=== PATIENT | male | born 1945 | race African-American/Black ===

== ENCOUNTER 2017-12-05 09:49 | Inpatient (IN) | payer MEDICARE, MEDICAID ==
[2017-12-05 12:15] LABS: Troponin I 0.077 ng/mL (< 0.028)
[2017-12-05] MEDS ORDERED: VANCOMYCIN IVPB PRN (13:13)
[2017-12-05] MEDS ORDERED: Eucerin (Mineral Oil/Petrolatum,White) 30 gm Jar TOP PRN (13:13)
[2017-12-05] MEDS ORDERED: Mag-Al 1200 mg/1200 mg/30 ML UDCUP PO PRN (13:13)
[2017-12-05] MEDS ORDERED: Ondansetron HCl/PF 4 MG/2 ML Vial IVP PRN (13:13)
[2017-12-05] MEDS ORDERED: Zolpidem Tartrate 5 MG TAB PO PRN (13:13)
[2017-12-05] MEDS ORDERED: Artificial Tears 18 DROP/0.9 ML EA EYE PRN (13:13)
[2017-12-05] MEDS ORDERED: Loperamide HCl 2 MG CAP PO PRN (13:13)
[2017-12-05] MEDS ORDERED: Loratadine 10 MG TAB PO PRN (13:13)
[2017-12-05] MEDS ORDERED: Ondansetron ODT 4 MG TAB PO PRN (13:13)
[2017-12-05] MEDS ORDERED: Milk Of Magnesia 30 ML UDCUP PO PRN (13:13)
[2017-12-05] MEDS ORDERED: Sodium Chloride 0.65% Nasal 44 ML BOT EA NARE PRN (13:13)
[2017-12-05] MEDS ORDERED: Acetaminophen 325 MG TAB PO PRN (13:13)
[2017-12-05] MEDS ORDERED: Chloraseptic Spray 180 ml Bottle PO PRN (13:13)
[2017-12-05] MEDS ORDERED: Senokot 8.6 MG TAB PO PRN (13:13)
[2017-12-05] MEDS ORDERED: Diabetic Tussin 200 MG/10 ML UDCUP PO PRN (13:13)
[2017-12-05] MEDS ORDERED: Nitroglycerin 0.4 MG TAB (25 Tab Bottle) SL PRN (13:13)
[2017-12-05] MEDS ORDERED: hydrALAZINE 20 MG/ML VIAL SLOW IVP PRN (13:13)
[2017-12-05] MEDS ORDERED: Vancomycin HCl 1 GM in Premix Bag 1 BAG IVPB SCH (13:15)
[2017-12-05 14:57] LABS: Troponin I 0.171 ng/mL (< 0.028)
--- NOTE | 2017-12-05 15:25 | HP ---
PRIMARY CARE PHYSICIAN: Dr. Cali Olson. REASON FOR ADMISSION: Transfer from [facility] for acute respiratory failure and pneum onia. HISTORY OF PRESENT ILLNESS: A 72-year-old -[place] male, [facility] a complaint of increasing shortness of breath. Patient is a very poor historian. A t [facility], patient was in respiratory distress. He required BiPAP. He was hypoxic. He had a chest x-ray done, which showed entire right lung pneumonia. He was given DuoNeb therapy, Solu-Medrol, and levofloxacin. The patient's routine blood test also showed elevated leukocytosis, e levated troponin, and elevated BNP. The patient was transferred to our emergency room for further ev aluation and treatment. With this treatment so far at [facility], the patient's condit ion somewhat improved and in our emergency room, he was maintaining saturation on 2 liter. He was co mplaining of epigastric abdominal discomfort and he was hungry and he was asking for food. The patie nt was uncooperative with the history and not able to provide any detailed history. The patient appe ared very weak. He is afebrile. The patient denies any chest pain. He denies any palpitation, dizziness, syncope. He denies any ort hopnea, PND, or leg swelling. He was completely comfortable in the lying down position. ALLERGIES: PENICILLIN G. CURRENT HOME MEDICATIONS: Unfortunately, patient did not bring any medication and the patient has no clue what medication he is taking and no family member available at bedside, so unable to obtain the patient's home medication, we will review later. REVIEW OF SYSTEMS: I tried to review the all review of systems with the patient, but he mostly repor ts no to most of the questions except shortness of breath, hunger, pain and epigastric abdominal disc omfort, and cough. Other than that, all review of system reviewed and negative except as mentioned i n the HPI. The following complete review of systems was negative, unless otherwise mentioned in the HPI or below : Constitutional: Weight loss or gain, ability to conduct usual activities. Skin: Rash, itching. Eyes: Double vision, pain. ENT/Mouth: Nose bleeding, neck stiffness, pain, tenderness. Cardiovascular: Palpitations, dyspnea on exertion, orthopnea. Respiratory: Shortness of breath, whee zing, cough, hemoptysis, fever or night sweats. Gastrointestinal: Poor appetite, abdominal pain, hea rtburn, nausea, vomiting, constipation, or diarrhea. Genitourinary: Urgency, frequency, dysuria, noc turia. Musculoskeletal: Pain, swelling. Neurologic/Psychiatric: Anxiety, depression. Allergy/Immun ologic: Skin rash, bleeding tendency. PAST MEDICAL HISTORY: History of myocardial infarction and coronary artery disease, required stent p lacement. Other history not available at this point. PAST SURGICAL HISTORY: Cardiac catheterization and stent placement. PAST PSYCHIATRIC HISTORY: Reviewed and negative. SOCIAL HISTORY: Patient lives with his brother. He denies any tobacco, alcohol, or illicit drug abu se. FAMILY HISTORY: No strong family history of premature coronary artery disease, stroke, or cancer. EMERGENCY ROOM COURSE: Patient was given DuoNeb therapy x3, Solu-Medrol 125 mg and nitropatch as wel l as levofloxacin at other emergency room at [place]. He is receiving vancomycin in our emergency room. He was given 250 mL fluid and morphine 4 mg. PHYSICAL EXAMINATION: VITAL SIGNS: In our emergency room, blood pressure 126/82, pulse 78, respiratory rate 26, temperatur e 97.4, saturation 100% on 2 liter oxygen, weight 77.1 kilograms, but this patient was hypoxic when h e arrived to [facility] and required BiPAP. GENERAL: The patient is chronically ill, tachypneic, and mild nares. HEENT: Head: Normocephalic, atraumatic. Eyes: Pupils round, reactive to light. Extraocular muscl e intact. ENT: Oropharynx within normal limits. Moist mucous membranes. No oral lesion, no pharyn geal erythema, no exudate. NECK: Supple, no JVD, no thyromegaly, no carotid bruit. LUNGS: Air entry reduced on both sides, more scattered rales noted on the right side. No wheezing, no rhonchi, no accessory muscles of respiration in use. CARDIAC: S1 and S2 appears regular. No murmur, no gallop, no rub. ABDOMEN: Soft, bowel sounds present, nontender, nondistended. No organomegaly, no mass, no suprapub ic tenderness. BACK: Unremarkable, no CVA tenderness. EXTREMITIES: Upper extremity passive movement of all joints are normal. Lower extremities: No nicolle a, no calf tenderness. Good distal pulsation. SKIN: No skin rash. HEMATOLOGICAL: No lymphadenopathy. PSYCHIATRIC: Normal affect. NEUROLOGIC: The patient is moving all 4 limbs. Patient's speech is normal. Cranial nerves II-XII i ntact. Motor and sensation grossly normal without any focal neurological deficit. Reflex is symmetr ical. SIGNIFICANT LABORATORY DATA: 1. Blood tests done at [facility] reviewed by me and entire hospital course reviewed b y . 2. BMP shows sodium 138, potassium 4.1, chloride 103, carbon dioxide 22, anion gap 17, glucose 117, BUN 14.1, creatinine 1.1, and calcium 9.7. 3. Bilirubin 1.88, alkaline phosphatase 71, AST 25, ALT 21, protein 9.5, albumin 4.2. Lactic acid 3 .2 and here 4.7. 4. CK 248, CK-MB 4.7, troponin I 0.051. BNP 2363. 5. CBC: WBC 12.6, hemoglobin 14.8, platelet 231. Blood culture x2 done at [facility] . IMAGING DATA: Chest x-ray showing a right-sided bronchopneumonia. EKG showing normal sinus rhythm, left atrial enlargement, low voltage QRS complex. ASSESSMENT AND PLAN: 1. Acute hypoxic respiratory failure likely due to underlying pneumonia on the right lung. The diana ent required initially BiPAP as well as now he still requires oxygen, most likely related with pneumo abdoulaye and we will gradually wean off oxygen and assess daily for need of home oxygen. 2. Right-sided pneumonia. Patient's chest x-ray is most likely consistent with pneumonia. He has l actic acidosis as well as associated hypoxic respiratory failure. Pulmonary will be consulted. Diana ent will be admitted on IMCU for close monitoring. He will be given cefepime, Levaquin, and vancomyc in to cover all possible gram-negative rods as well as gram positive cocci. DuoNeb therapy q.6 hourl y, Mucinex 600 mg 3 times daily. We will follow up on culture result. We will closely monitor in IM CU. 3. Sepsis with acute organ dysfunction. This patient has leukocytosis, lactic acidosis, acute hypox ic respiratory failure, and source of infection is pneumonia. We will also check urinalysis to rule out urinary tract infection. The patient is already on broad spectrum antibiotic therapy with cefepi me, Levaquin, and vancomycin. 4. Lactic acidosis, likely due to underlying sepsis and we will repeat lactic acid level tomorrow. 5. Protein calorie malnutrition, mild. The patient will be given nutritional supplementation with E nsure. 6. History of coronary artery disease. We will continue aspirin 81 mg p.o. daily and do serial card iac enzymes x3 to rule out acute coronary syndrome and we will obtain patient's home medication and s elected home medication will be started while in hospital. 7. Elevated BNP, suspecting cardiomyopathy, systolic or diastolic unknown, but at this point, the pa taya will need echocardiography and the patient is currently appears euvolemic. He does not have an y rales and that is why we will gently give him IV fluid as well, and we will closely monitor in IMCU . We will watch for any signs of fluid overload state. 8. Deep venous thrombosis prophylaxis. Lovenox 40 mg subcu daily. 9. Gastrointestinal prophylaxis. Pepcid 20 mg p.o. b.i.d. 10. Code status: The patient is FULL CODE. Patient does not have any surrogate decision maker. Di sposition plan based on clinical course. We are expecting patient's stay in hospital more than 2 mid nights. Plan of care discussed with the patient in detail.
[2017-12-05] MEDS: guaiFENesin ER 600 MG TAB PO SCH ×2 (16:09→21:00)
[2017-12-05 17:03] LABS: Lactic Acid 4.3 mmol/L (0.5-2.2)
[2017-12-05 17:20] LABS: ALT (SGPT) 16 U/L (8-55); AST (SGOT) 20 U/L (5-34); Albumin 3.7 g/dL (3.4-4.8); Alkaline Phosphatase 61 U/L (40-150); Anion Gap 16 mmol/L (10-20); BUN (Urea Nitrogen) 15 mg/dL (8.4-25.7); Bilirubin, Total 1.5 mg/dL (0.2-1.2); Calc. Creatinine Clearance 0 mL/min (70-130); Calcium 9.3 mg/dL (7.8-10.44); Carbon Dioxide 23 mmol/L (23-31); Chloride 101 mmol/L (98-107); Estimated GFR-MDRD 82; Globulin 4.6 g/dL (2.4-3.5); Glucose 201 mg/dL (83-110); Potassium 4.1 mmol/L (3.5-5.1); Protein, Total 8.3 g/dL (5.8-8.1); Sodium 136 mmol/L (136-145)
[2017-12-05 18:35] LABS: Bilirubin Negative (Negative); Blood, Urine Negative (Negative); Clarity CLEAR (Clear); Glucose, Urine (Dipstick) 250 mg/dL (Negative); Leukocyte Negative (Negative); Nitrite Negative (Negative); Protein, Urine (Dipstick) Negative (Neg-Trace); Specific Gravity, Urine 1.017 (1.002-1.036)
[2017-12-05 18:37] LABS: Bacteria/HPF None Seen HPF (None Seen); Hyaline Casts/LPF 0-3 HYALINE CAST LPF (0-3 Hyaline); RBC/HPF None Seen HPF (0-3); Squamous Epithelial None Seen HPF (0-3); WBC/HPF 0-3 HPF (0-3)
[2017-12-05] MEDS ORDERED: Cefepime 2 GM in Sodium Chloride 0.9% 100 ML IVPB SCH (21:00)
[2017-12-05] MEDS: Cefepime 2 GM, Syringe 2.5 ML in Sodium Chloride 0.9% 10 ML SLOW IVP SCH (21:00)
[2017-12-05] MEDS: Famotidine 20 MG TAB PO SCH (21:00)
[2017-12-06] MEDS: Vancomycin HCl 1 GM in Premix Bag 1 BAG IVPB SCH ×2 (00:47→14:16)
[2017-12-06 05:58] LABS: #Lymphocytes 1.4 thou/uL (1.20-3.40); #Monocytes 0.8 thou/uL (0.11-0.59); #Neutrophils 8.3 thou/uL (1.40-6.50); %Basophils 0.2 % (0.0-1.0); %Eosinophils 0.3 % (0.0-10.0); %Lymphocytes 12.9 % (21.0-51.0); %Monocytes 7.7 % (0.0-10.0); %Neutrophils 78.8 % (42.0-75.0); Hemoglobin 11.4 g/dL (14.0-18.0); Mean Corpuscular HGB CONC 33.8 g/dL (32.0-36.0); Mean Corpuscular Hemoglobin 28.6 pg (27.0-31.0); Mean Corpuscular Volume 84.5 fl (80.0-94.0); Mean Platelet Volume 7.7 fL (7.4-10.4); Platelet Count 201 thou/uL (130-400); RBC Distribution Width 14.7 % (11.5-14.5); White Blood Cell (WBC) Count 10.5 thou/uL (4.8-10.8)
[2017-12-06 06:08] LABS: Lactic Acid 1.7 mmol/L (0.5-2.2)
[2017-12-06 06:11] LABS: ALT (SGPT) 13 U/L (8-55); AST (SGOT) 17 U/L (5-34); Albumin 3.2 g/dL (3.4-4.8); Alkaline Phosphatase 53 U/L (40-150); Anion Gap 9 mmol/L (10-20); BUN (Urea Nitrogen) 21 mg/dL (8.4-25.7); Bilirubin, Total 0.8 mg/dL (0.2-1.2); Calc. Creatinine Clearance 58 mL/min (70-130); Calcium 8.9 mg/dL (7.8-10.44); Carbon Dioxide 26 mmol/L (23-31); Chloride 106 mmol/L (98-107); Estimated GFR-MDRD 79; Globulin 3.7 g/dL (2.4-3.5); Glucose 108 mg/dL (83-110); Potassium 3.4 mmol/L (3.5-5.1); Protein, Total 6.9 g/dL (5.8-8.1); Sodium 138 mmol/L (136-145)
[2017-12-06 06:14] LABS: CKMB 2.9 ng/mL (0-6.6); Troponin I 0.159 ng/mL (< 0.028)
[2017-12-06] MEDS ORDERED: Non-Formulary Item 1 EACH (Atorvastatin Calcium [Atorvastatin Calcium] 80 MG) PO SCH (09:00)
[2017-12-06] MEDS ORDERED: Aspirin 325 MG TAB PO SCH (09:00)
--- NOTE | 2017-12-06 09:04 | RAD ---
CHEST ONE VIEW: HISTORY: Pneumonia. COMPARISON: None. FINDINGS: There is cardiomegaly. There are patchy interstitial opacities throughout the lung parenchyma. A fo kary alveolar infiltrate in the right lung base is suggested. There is an adjacent pleural effusion. No pneumothorax. IMPRESSION: 1. Multifocal interstitial opacities, which may represent infiltrate. 2. Focal alveolar infiltrate in the right lung base. 3. Adjacent pleural effusion. 4. A component of congestive heart failure cannot be excluded. Continued surveillance. POS: WHITNEY
[2017-12-06] MEDS: Lisinopril 2.5 MG TAB PO SCH (09:07)
[2017-12-06] MEDS: Multivitamin W/ Minerals 1 TAB PO SCH (09:09)
[2017-12-06] MEDS: Furosemide 20 MG TAB PO SCH ×2 (09:09→14:03)
[2017-12-06] MEDS: Carvedilol 3.125 MG TAB PO SCH ×2 (09:09→20:47)
[2017-12-06] MEDS: Saccharomyces boulardii 250 MG CAP PO SCH (09:09)
[2017-12-06] MEDS: Clopidogrel Bisulfate 75 MG TAB PO SCH (09:09)
[2017-12-06] MEDS: Enoxaparin Sodium 30 MG/0.3 ML SYRINGE SC SCH (09:11)
[2017-12-06] MEDS: guaiFENesin ER 600 MG TAB PO SCH ×3 (09:17→20:47)
--- NOTE | 2017-12-06 10:28 | PDOC.PN ---
- Subjective Encounter Start Date: 12/06/17 Encounter Start Time: 07:40 -: old records requested/rev Patient seen and examined. No new complaints. No overnight events has cough, dyspnea - Objective Resuscitation Status: Resuscitation Status FULL:Full Resuscitation MAR Reviewed: Yes Vital Signs & Weight: Vital Signs (12 hours) Temp Pulse Resp BP BP BP Pulse Ox 12/06/17 09:07 73 117/64 12/06/17 09:05 100 12/06/17 09:02 73 16 100 12/06/17 07:46 98.3 F 65 18 117/64 99 12/06/17 04:00 98.4 F 69 16 122/71 94 L 12/05/17 23:17 84 16 96 Weight Weight 150 lb 6.4 oz I&O: 12/05/17 12/06/17 12/07/17 06:59 06:59 06:59 Intake Total 880 Output Total 1275 Balance -395 Result Diagrams: 12/06/17 04:43 12/06/17 04:43 Radiology Reviewed by me: Yes (chest xray) EKG Reviewed by me: Yes Phys Exam - Physical Examination Constitutional: NAD HEENT: PERRLA, moist MMs, sclera anicteric Neck: no JVD, supple Respiratory: no wheezing, no rhonchi right base reduced air entry and rales Cardiovascular: RRR, no significant murmur, no rub Gastrointestinal: soft, non-tender, no distention, positive bowel sounds Musculoskeletal: no edema, pulses present Neurological: non-focal, normal sensation, moves all 4 limbs Psychiatric: normal affect Skin: no rash, normal turgor Dx/Plan (1) Acute respiratory failure with hypoxia Code(s): J96.01 - ACUTE RESPIRATORY FAILURE WITH HYPOXIA Status: Acute (2) Community acquired bacterial pneumonia Code(s): J15.9 - UNSPECIFIED BACTERIAL PNEUMONIA Status: Acute (3) Demand ischemia of myocardium Code(s): I24.8 - OTHER FORMS OF ACUTE ISCHEMIC HEART DISEASE Status: Acute (4) Elevated brain natriuretic peptide (BNP) level Code(s): R79.89 - OTHER SPECIFIED ABNORMAL FINDINGS OF BLOOD CHEMISTRY Status : Acute (5) Hypokalemia Code(s): E87.6 - HYPOKALEMIA Status: Acute (6) Lactic acidosis Code(s): E87.2 - ACIDOSIS Status: Acute (7) Sepsis with acute organ dysfunction Code(s): A41.9 - SEPSIS, UNSPECIFIED ORGANISM; R65.20 - SEVERE SEPSIS WITHOUT SEPTIC SHOCK Status: Acute (8) Anemia, normocytic normochromic Code(s): D64.9 - ANEMIA, UNSPECIFIED Status: Chronic (9) CAD (coronary artery disease) Code(s): I25.10 - ATHSCL HEART DISEASE OF [place] CORONARY ARTERY W/O ANG PCTRS Status: Chronic (10) Dyslipidemia Code(s): E78.5 - HYPERLIPIDEMIA, UNSPECIFIED Status: Chronic (11) Protein-calorie malnutrition, mild Code(s): E44.1 - MILD PROTEIN-CALORIE MALNUTRITION Status: Chronic - Plan cont current plan of care, continue antibiotics, PT/OT, nephrology social worker, respiratory therapy, DVT proph w/lovenox * continue cefepime, levaquin and vancomycin * continue respiratory therapy * echo * follow culture * medication reviewed as below * symptomatic treatment. * replace potassium Review of Systems - Review of Systems Constitutional: negative: fever, chills, sweats, weakness, malaise, other Eyes: negative: Pain, Vision Change, Conjunctivae Inflammation, Eyelid Inflammation, Redness, Other ENT: negative: Ear Pain, Ear Discharge, Nose Pain, Nose Discharge, Nose Congestion, Mouth Pain, Mouth Swelling, Throat Pain, Throat Swelling, Other Respiratory: Cough, Shortness of Breath. negative: Dry, Hemoptysis, SOB with Excertion, Pleuritic Pain, Sputum, Wheezing Cardiovascular: negative: chest pain, palpitations, orthopnea, paroxysmal nocturnal dyspnea, edema, light headedness, other Gastrointestinal: negative: Nausea, Vomiting, Abdominal Pain, Diarrhea, Constipation, Melena, Hematochezia, Other Genitourinary: negative: Dysuria, Frequency, Incontinence, Hematuria, Retention , Other Musculoskeletal: negative: Neck Pain, Shoulder Pain, Arm Pain, Back Pain, Hand Pain, Leg Pain, Foot Pain, Other Skin: negative: Rash, Lesions, Luiz, Bruising, Other - Medications/Allergies Allergies/Adverse Reactions: Allergies Allergy/AdvReac Type Severity Reaction Status Date / Time penicillin G Allergy Verified 12/05/17 13:02 Medications: Current Medications Acetaminophen (Tylenol) 650 mg PO Q4H PRN PRN Reason: Headache/Fever or Pain Hydrocodone Bitart/Acetaminophen ([place] 5/325) 1 tab PO Q4H PRN PRN Reason: Moderate Pain (4-6) Al Hydroxide/Mg Hydroxide (Maalox) 30 ml PO Q6H PRN PRN Reason: Heartburn or Indigestion Albuterol/Ipratropium (Duoneb) 3 ml NEB [id number] [facility] Last Admin: 12/06/17 09:02 Dose: 3 ml Artificial Tears (Tears Naturale) 0 drop EA EYE PRN PRN PRN Reason: Dry Eyes Aspirin (Aspirin Chewable) 81 mg PO DAILY [facility] Last Admin: 12/06/17 09:08 Dose: 81 mg Atorvastatin Calcium (Lipitor) 80 mg PO HS [facility] Carvedilol (Coreg) 3.125 mg PO BID [facility] Last Admin: 12/06/17 09:09 Dose: 3.125 mg Clopidogrel Bisulfate (Plavix) 75 mg PO DAILY [facility] Last Admin: 12/06/17 09:09 Dose: 75 mg Enoxaparin Sodium (Lovenox) 30 mg SC 0900 [facility] Last Admin: 12/06/17 09:11 Dose: Not Given Famotidine (Pepcid) 20 mg PO 2100 [facility] Last Admin: 12/05/17 21:00 Dose: 20 mg Furosemide (Lasix) 20 mg PO 0900,1400 [facility] Last Admin: 12/06/17 09:09 Dose: 20 mg Guaifenesin (Robitussin Sf) 200 mg PO Q4H PRN PRN Reason: Cough Guaifenesin (Mucinex) 600 mg PO TID [facility] Last Admin: 12/06/17 09:17 Dose: Not Given Hydralazine HCl (Apresoline) 10 mg SLOW IVP Q4H PRN PRN Reason: Systolic BP > 180 Levofloxacin 500 mg/ Device 100 mls @ 100 mls/hr IVPB 1800 [facility] Last Admin: 12/05/17 18:07 Dose: 100 mls Cefepime HCl 2 gm/ Syringe 2.5 (ml/ Sodium Chloride) 12.5 mls @ 150 mls/hr SLOW IVP 0800,2000 [facility] Last Admin: 12/05/17 21:00 Dose: 12.5 mls Vancomycin HCl 1 gm/ Device 200 mls @ 200 mls/hr IVPB 0100,1300 [facility] Last Admin: 12/06/17 00:47 Dose: 200 mls Iron/Minerals/Multivitamins (Theragran M) 1 tab PO DAILY [facility] Last Admin: 12/06/17 09:09 Dose: 1 tab Lisinopril (Zestril) 2.5 mg PO DAILY [facility] Last Admin: 12/06/17 09:07 Dose: 2.5 mg Loperamide HCl (Imodium) 2 mg PO PRN PRN PRN Reason: Diarrhea/Loose Stools Loratadine (Claritin) 10 mg PO DAILYPRN PRN PRN Reason: Sinus Symptoms Magnesium Hydroxide (Milk Of Magnesium) 30 ml PO DAILYPRN PRN PRN Reason: Constipation Mineral Oil/White Petrolatum (Eucerin Cream) 0 gm TOP BIDPRN PRN PRN Reason: Dry Skin Miscellaneous Medication (Pharmacy To Dose) 1 each IVPB PRN PRN PRN Reason: Pharmacy to dose Nitroglycerin (Nitrostat) 0.4 mg SL Q5MIN PRN PRN Reason: Chest Pain Ondansetron HCl (Zofran Odt) 4 mg PO Q6H PRN PRN Reason: Nausea/Vomiting Ondansetron HCl (Zofran) 4 mg IVP Q6H PRN PRN Reason: Nausea/Vomiting Phenol (Chloraseptic Isabella 180 Ml Bot) 0 ml PO PRN PRN PRN Reason: Sore Throat Saccharomyces Boulardii (Florastor) 250 mg PO DAILY [facility] Last Admin: 12/06/17 09:09 Dose: 250 mg Senna (Senokot) 2 tab PO HSPRN PRN PRN Reason: Constipation Sodium Chloride (Marquand Nasal Isabella 0.65%) 0 ml EA NARE QIDPRN PRN PRN Reason: Nasal Congestion Sodium Chloride (Flush - Normal Saline) 10 ml IVF Q12HR [facility] Last Admin: 12/06/17 09:16 Dose: 10 ml Sodium Chloride (Flush - Normal Saline) 10 ml IVF PRN PRN PRN Reason: Saline Flush Zolpidem Tartrate (Ambien) 5 mg PO HSPRN PRN PRN Reason: Insomnia
[2017-12-06] MEDS: Cefepime 2 GM, Syringe 2.5 ML in Sodium Chloride 0.9% 10 ML SLOW IVP SCH ×2 (10:42→20:46)
[2017-12-06] MEDS: Potassium Chloride 20 MEQ TAB PO SCH ×3 (14:02→18:31)
[2017-12-06] MEDS: HYDROcodone/Acetaminophen 5/325 mg Tablet PO PRN (15:27)
--- NOTE | 2017-12-06 19:20 | CON ---
DATE OF CONSULTATION: 12/06/2017 SERVICE: Pulmonary Medicine. REASON FOR CONSULTATION: Possible pneumonia. HISTORY OF PRESENT ILLNESS: Patient is a 72-year-old -[place] male with past medical history, which is essentially unknown. He is a little cantankerous. He is also a poor historian. He does not remember how long he was short of breath or whether or not he was coughing before he came into the hospital. He does not remember having any chest discomfort. That being said, he is not willingly giving away any elements of his presentation. He keeps suggesting that I should know exactly what the problem is, in that all I want is his money. He suggests that I should know exactly what medications make him better because this has happened so frequently. I attempted to explain to him that this is the first time for us to meet him with our system. He did not want to hear my explanation and request that I leave. As such, I acquiesced with his request. Prior to going, he did allow me to listen to his heart, lungs , abdomen, and look at his legs. Past medical history, past surgical history, family history, social history, and review of systems could not be obtained as the patient was not a willing participant. ALLERGIES: Based on chart review include PENICILLIN G. MEDICATIONS: The list of his inpatient medications were reviewed. I have discontinued the IV fluids, but otherwise, no significant changes were made. PHYSICAL EXAMINATION: VITAL SIGNS: Afebrile, pulse 67, blood pressure 127/73, respirations 98% on 2 liters nasal cannula. GENERAL: The patient is awake and alert. He is in no apparent distress. HEENT: Normocephalic, atraumatic. Sclerae are white, conjunctivae pink. Oral mucosa is moist without lesions. LUNGS: Decent air entry. I do not hear much of a prolonged expiratory phase. No wheezing is appreciated. Crackles are present in the right base. No crackles are appreciated on the left. HEART: Normal rate. Regular. ABDOMEN: Soft, nontender, nondistended. Bowel sounds are positive. MUSCULOSKELETAL: No cyanosis or clubbing. There is trace edema in the bilateral lower extremities. NEUROLOGIC: Grossly nonfocal. LABORATORY DATA: WBC 10.5, hemoglobin 11.4, platelets 201,000. Basic metabolic profile and liver function studies are otherwise unremarkable. Troponin is down trending to 0.159. Lactate on presentation was elevated at 4.7 , but has returned to normal at 1.7. Urinalysis is also unremarkable. Influenza A and B are negative. IMAGIN. Chest x-ray demonstrates right basilar infiltrate. Interstitial opacities are present throughout bilateral lung manzano. Right-sided pleural effusion is likely small. 2. Echocardiogram demonstrates an EF of 20-25% with a very thin anterior wall that is not denzel. ASSESSMENT: 1. Acute hypoxic respiratory failure, mild. 2. Healthcare-associated pneumonia, unlikely. 3. Chronic systolic heart failure, unknown baseline. PLAN: I will request records from his home system so that we have a better fundamental understanding of his underlying medical condition. If he does not have a formal diagnosis of a condition causing cognitive impairment, this may need to be investigated in the outpatient setting. We will continue empiric antibiotics for the time being, but truth be told, I do think that he has a true infection. I did watch him eat a couple of bites of lunch and he had to clear his throat a little excessively after two of the several bites that I witnessed. As such, I have Speech Pathology come by and look at him to determine whether or not a modified barium swallow would be indicated. If cultures are negative at 48 hours, we can deescalate antibiotics and discharge the patient. 70 minutes have been devoted to this patient in various activities. I personally reviewed all imaging studies and laboratory data noted within this document. For fifty percent of this time, I was interacting with the patient at the bedside or coordinating care with the care team. For the remainder of the time I was immediately available to the patient in the hospital unit. NATTY
[2017-12-06] MEDS: Famotidine 20 MG TAB PO SCH (20:47)
[2017-12-06] MEDS: Atorvastatin Calcium 40 MG TAB PO SCH (20:47)
[2017-12-07 01:18] LABS: Vancomycin, Trough 12.7 ug/mL
[2017-12-07] MEDS: Vancomycin HCl 1 GM in Premix Bag 1 BAG IVPB SCH ×2 (01:32→14:10)
[2017-12-07 05:18] LABS: #Eosinphils 0.3 thou/uL (0.0-0.7); #Lymphocytes 1.6 thou/uL (1.20-3.40); #Monocytes 0.5 thou/uL (0.11-0.59); #Neutrophils 6.1 thou/uL (1.40-6.50); %Basophils 0.3 % (0.0-1.0); %Eosinophils 3.2 % (0.0-10.0); %Lymphocytes 18.6 % (21.0-51.0); %Monocytes 6.2 % (0.0-10.0); %Neutrophils 71.8 % (42.0-75.0); Hemoglobin 11.8 g/dL (14.0-18.0); Mean Corpuscular HGB CONC 32.9 g/dL (32.0-36.0); Mean Corpuscular Hemoglobin 27.9 pg (27.0-31.0); Mean Corpuscular Volume 84.8 fl (80.0-94.0); Mean Platelet Volume 7.5 fL (7.4-10.4); Platelet Count 200 thou/uL (130-400); RBC Distribution Width 14.7 % (11.5-14.5); Red Blood Cell (RBC) Count 4.24 mill/uL (4.70-6.10); White Blood Cell (WBC) Count 8.5 thou/uL (4.8-10.8)
[2017-12-07 05:33] LABS: Anion Gap 10 mmol/L (10-20); BUN (Urea Nitrogen) 25 mg/dL (8.4-25.7); Calc. Creatinine Clearance 58 mL/min (70-130); Calcium 8.8 mg/dL (7.8-10.44); Carbon Dioxide 27 mmol/L (23-31); Cardiac Risk 2.6 (Less than 4.5); Chloride 104 mmol/L (98-107); Cholesterol 110 mg/dl (< 200 Desired); Estimated GFR-MDRD 78; Glucose 90 mg/dL (83-110); HDL Cholesterol 42 mg/dL (>60 Neg Risk); LDL Cholesterol, Calculated 61 mg/dL; Potassium 4.1 mmol/L (3.5-5.1); Sodium 137 mmol/L (136-145); Triglycerides 35 mg/dL (Less than 150)
[2017-12-07] MEDS: guaiFENesin ER 600 MG TAB PO SCH ×3 (09:06→20:10)
[2017-12-07] MEDS: Enoxaparin Sodium 30 MG/0.3 ML SYRINGE SC SCH (09:06)
--- NOTE | 2017-12-07 09:07 | PDOC.PN ---
- Subjective Encounter Start Date: 12/07/17 Encounter Start Time: 07:20 Patient seen and examined. No new complaints. No overnight events today he is doing well, saturating normal - Objective Resuscitation Status: Resuscitation Status FULL:Full Resuscitation MAR Reviewed: Yes Vital Signs & Weight: Vital Signs (12 hours) Temp Pulse Resp BP Pulse Ox 12/07/17 06:45 99 12/07/17 06:43 80 99 12/07/17 04:00 98.9 F 77 18 128/89 98 12/07/17 01:56 98 12/06/17 23:53 98.2 F 74 18 117/80 98 Weight Admit Weight 154 lb 4 oz Weight 154 lb 6.4 oz I&O: 12/06/17 12/07/17 12/08/17 06:59 06:59 07:59 Intake Total 880 2340 Output Total 1275 1885 Balance -395 455 Result Diagrams: 12/07/17 04:22 12/07/17 04:22 EKG Reviewed by me: Yes (nsr) Phys Exam - Physical Examination Constitutional: NAD HEENT: PERRLA, moist MMs, sclera anicteric Neck: no JVD, supple Respiratory: no wheezing, no rales, no rhonchi Cardiovascular: RRR, no significant murmur, no rub Gastrointestinal: soft, non-tender, no distention, positive bowel sounds Musculoskeletal: no edema, pulses present Neurological: non-focal, normal sensation, moves all 4 limbs Psychiatric: normal affect, A&O x 3 Skin: no rash, normal turgor Dx/Plan (1) Acute respiratory failure with hypoxia Code(s): J96.01 - ACUTE RESPIRATORY FAILURE WITH HYPOXIA Status: Resolved (2) Community acquired bacterial pneumonia Code(s): J15.9 - UNSPECIFIED BACTERIAL PNEUMONIA Status: Acute (3) Demand ischemia of myocardium Code(s): I24.8 - OTHER FORMS OF ACUTE ISCHEMIC HEART DISEASE Status: Acute (4) Elevated brain natriuretic peptide (BNP) level Code(s): R79.89 - OTHER SPECIFIED ABNORMAL FINDINGS OF BLOOD CHEMISTRY Status : Acute Comment: due to systolic CHF (5) Hypokalemia Code(s): E87.6 - HYPOKALEMIA Status: Resolved (6) Lactic acidosis Code(s): E87.2 - ACIDOSIS Status: Resolved (7) Sepsis with acute organ dysfunction Code(s): A41.9 - SEPSIS, UNSPECIFIED ORGANISM; R65.20 - SEVERE SEPSIS WITHOUT SEPTIC SHOCK Status: Acute (8) Anemia, normocytic normochromic Code(s): D64.9 - ANEMIA, UNSPECIFIED Status: Chronic (9) CAD (coronary artery disease) Code(s): I25.10 - ATHSCL HEART DISEASE OF [place] CORONARY ARTERY W/O ANG PCTRS Status: Chronic (10) Dyslipidemia Code(s): E78.5 - HYPERLIPIDEMIA, UNSPECIFIED Status: Chronic (11) Protein-calorie malnutrition, mild Code(s): E44.1 - MILD PROTEIN-CALORIE MALNUTRITION Status: Chronic (12) Acute on chronic systolic (congestive) heart failure Code(s): I50.23 - ACUTE ON CHRONIC SYSTOLIC (CONGESTIVE) HEART FAILURE Status : Acute - Plan cont current plan of care, continue antibiotics, respiratory therapy * continue cefepime, levaquin and vancomycin * today later on based on culture, will narrow antibiotic spectrum * unsure if pt had cardiomyopathy before or not, will need cardiology evaluation * medication reviewed as below * symptomatic treatment. Review of Systems - Review of Systems Constitutional: negative: fever, chills, sweats, weakness, malaise, other Eyes: negative: Pain, Vision Change, Conjunctivae Inflammation, Eyelid Inflammation, Redness, Other ENT: negative: Ear Pain, Ear Discharge, Nose Pain, Nose Discharge, Nose Congestion, Mouth Pain, Mouth Swelling, Throat Pain, Throat Swelling, Other Respiratory: negative: Cough, Dry, Shortness of Breath, Hemoptysis, SOB with Excertion, Pleuritic Pain, Sputum, Wheezing Cardiovascular: negative: chest pain, palpitations, orthopnea, paroxysmal nocturnal dyspnea, edema, light headedness, other Gastrointestinal: negative: Nausea, Vomiting, Abdominal Pain, Diarrhea, Constipation, Melena, Hematochezia, Other Genitourinary: negative: Dysuria, Frequency, Incontinence, Hematuria, Retention , Other Musculoskeletal: negative: Neck Pain, Shoulder Pain, Arm Pain, Back Pain, Hand Pain, Leg Pain, Foot Pain, Other Skin: negative: Rash, Lesions, Luiz, Bruising, Other Neurological: negative: Weakness, Numbness, Incoordination, Change in Speech, Confusion, Seizures, Other - Medications/Allergies Allergies/Adverse Reactions: Allergies Allergy/AdvReac Type Severity Reaction Status Date / Time penicillin G Allergy Verified 12/05/17 13:02 Medications: Current Medications Acetaminophen (Tylenol) 650 mg PO Q4H PRN PRN Reason: Headache/Fever or Pain Hydrocodone Bitart/Acetaminophen ([place] 5/325) 1 tab PO Q4H PRN PRN Reason: Moderate Pain (4-6) Last Admin: 12/06/17 15:27 Dose: 1 tab Al Hydroxide/Mg Hydroxide (Maalox) 30 ml PO Q6H PRN PRN Reason: Heartburn or Indigestion Albuterol/Ipratropium (Duoneb) 3 ml NEB [id number] [facility] Last Admin: 12/07/17 06:43 Dose: 3 ml Artificial Tears (Tears Naturale) 0 drop EA EYE PRN PRN PRN Reason: Dry Eyes Aspirin (Aspirin Chewable) 81 mg PO DAILY [facility] Last Admin: 12/06/17 09:08 Dose: 81 mg Atorvastatin Calcium (Lipitor) 80 mg PO HS [facility] Last Admin: 12/06/17 20:47 Dose: 80 mg Carvedilol (Coreg) 3.125 mg PO BID [facility] Last Admin: 12/06/17 20:47 Dose: 3.125 mg Clopidogrel Bisulfate (Plavix) 75 mg PO DAILY [facility] Last Admin: 12/06/17 09:09 Dose: 75 mg Enoxaparin Sodium (Lovenox) 30 mg SC 0900 [facility] Last Admin: 12/06/17 09:11 Dose: Not Given Famotidine (Pepcid) 20 mg PO 2100 [facility] Last Admin: 12/06/17 20:47 Dose: 20 mg Furosemide (Lasix) 20 mg PO 0900,1400 [facility] Last Admin: 12/06/17 14:03 Dose: 20 mg Guaifenesin (Robitussin Sf) 200 mg PO Q4H PRN PRN Reason: Cough Guaifenesin (Mucinex) 600 mg PO TID [facility] Last Admin: 12/06/17 20:47 Dose: Not Given Hydralazine HCl (Apresoline) 10 mg SLOW IVP Q4H PRN PRN Reason: Systolic BP > 180 Levofloxacin 500 mg/ Device 100 mls @ 100 mls/hr IVPB 1800 [facility] Last Admin: 12/06/17 18:30 Dose: 100 mls Cefepime HCl 2 gm/ Syringe 2.5 (ml/ Sodium Chloride) 12.5 mls @ 150 mls/hr SLOW IVP 0800,2000 [facility] Last Admin: 12/06/17 20:46 Dose: 12.5 mls Vancomycin HCl 1 gm/ Device 200 mls @ 200 mls/hr IVPB 0100,1300 [facility] Last Admin: 12/07/17 01:32 Dose: 200 mls Iron/Minerals/Multivitamins (Theragran M) 1 tab PO DAILY [facility] Last Admin: 12/06/17 09:09 Dose: 1 tab Lisinopril (Zestril) 2.5 mg PO DAILY [facility] Last Admin: 12/06/17 09:07 Dose: 2.5 mg Loperamide HCl (Imodium) 2 mg PO PRN PRN PRN Reason: Diarrhea/Loose Stools Loratadine (Claritin) 10 mg PO DAILYPRN PRN PRN Reason: Sinus Symptoms Magnesium Hydroxide (Milk Of Magnesium) 30 ml PO DAILYPRN PRN PRN Reason: Constipation Mineral Oil/White Petrolatum (Eucerin Cream) 0 gm TOP BIDPRN PRN PRN Reason: Dry Skin Miscellaneous Medication (Pharmacy To Dose) 1 each IVPB PRN PRN PRN Reason: Pharmacy to dose Nitroglycerin (Nitrostat) 0.4 mg SL Q5MIN PRN PRN Reason: Chest Pain Ondansetron HCl (Zofran Odt) 4 mg PO Q6H PRN PRN Reason: Nausea/Vomiting Ondansetron HCl (Zofran) 4 mg IVP Q6H PRN PRN Reason: Nausea/Vomiting Phenol (Chloraseptic [place] 180 Ml Bot) 0 ml PO PRN PRN PRN Reason: Sore Throat Saccharomyces Boulardii (Florastor) 250 mg PO DAILY [facility] Last Admin: 12/06/17 09:09 Dose: 250 mg Senna (Senokot) 2 tab PO HSPRN PRN PRN Reason: Constipation Sodium Chloride ([place] Nasal [place] 0.65%) 0 ml EA NARE QIDPRN PRN PRN Reason: Nasal Congestion Sodium Chloride (Flush - Normal Saline) 10 ml IVF Q12HR [facility] Last Admin: 12/06/17 20:47 Dose: 10 ml Sodium Chloride (Flush - Normal Saline) 10 ml IVF PRN PRN PRN Reason: Saline Flush Zolpidem Tartrate (Ambien) 5 mg PO HSPRN PRN PRN Reason: Insomnia
[2017-12-07] MEDS: Cefepime 2 GM, Syringe 2.5 ML in Sodium Chloride 0.9% 10 ML SLOW IVP SCH ×2 (09:08→20:08)
[2017-12-07] MEDS: Carvedilol 3.125 MG TAB PO SCH ×2 (09:09→20:09)
[2017-12-07] MEDS: Clopidogrel Bisulfate 75 MG TAB PO SCH (09:09)
[2017-12-07] MEDS: Lisinopril 2.5 MG TAB PO SCH (09:09)
[2017-12-07] MEDS: Furosemide 20 MG TAB PO SCH ×2 (09:09→14:10)
[2017-12-07] MEDS: HYDROcodone/Acetaminophen 5/325 mg Tablet PO PRN ×2 (09:10→20:09)
[2017-12-07] MEDS: Saccharomyces boulardii 250 MG CAP PO SCH (09:10)
[2017-12-07] MEDS: Multivitamin W/ Minerals 1 TAB PO SCH (09:10)
--- NOTE | 2017-12-07 13:45 | CON ---
DATE OF CONSULTATION: 12/07/2017 REASON FOR CONSULTATION: Chronic systolic heart failure. HISTORY OF PRESENT ILLNESS: Mr. Hirsch is a very pleasant 72-year-old gentleman who gets most of h is cardiac workup at the [facility] in [place]. He states he has a history of a OK in 2015 with 2 stents edgar chevy. He also has a history of cardiomyopathy. He has been told in the past that he needed an ICD pl acement. He refused. He recently presented with shortness of breath. He states he has not been compliant with his sodium intake. No chest pain or pressure noted. He has complained of lower extremity edema. PAST MEDICAL HISTORY: 1. CAD. 2. Ischemic cardiomyopathy. SOCIAL HISTORY: No current tobacco or alcohol use. ALLERGIES: PENICILLIN. HOME MEDICATIONS: Not taking any. REVIEW OF SYSTEMS: Ten point review of systems reviewed and as above, otherwise negative. PHYSICAL EXAMINATION: VITAL SIGNS: Blood pressure 120/74, pulse 64, temperature 97.8. GENERAL: Patient is a pleasant male who is in no acute distress. The patient appears his stated age. VITAL SIGNS: NEUROLOGIC: The patient is alert and oriented times 3 with no focal neurologic deficits. HEENT: Sclerae without icterus. Mouth has moist mucous membranes with normal pallor. NECK: No JVD. Carotid upstroke brisk. No bruits bilaterally. LUNGS: Crackles noted bilaterally at bases. BACK: No scoliosis or kyphosis. CARDIAC: Regular rate and rhythm with normal S1 and S2. No S3 or S4 noted. No significant rubs, murmurs, thrills, or gallops noted throughout the precordium. PMI is not displaced. There is no parasternal heave. ABDOMEN: Soft, nontender, nondistended. No peritoneal signs present. No hepatosplenomegaly. No abnormal striae. EXTREMITIES: 2+ femoral and 2+ dorsalis pedis pulses. No cyanosis, clubbing, or edema. SKIN: No gross abnormalities. PERTINENT LABORATORY DATA: Hemoglobin 11.8, creatinine 1.12. BNP of 808 with a troponin 0.156. IMPRESSION: 1. Acute on chronic systolic heart. 2. History of myocardial infarction. 3. Status post stent placement. RECOMMENDATIONS: Mr. Hirsch likely had a dietary indiscretion as the etiology to his current short ness of breath. He has also been out of his medications. I again discussed ICD placement with Mr. Cecil neal. He is adamant against the use of ICD. He states it is a "family thing". He understands th e risk of sudden cardiac . At this point, we will treat medically. Continue aspirin and atorva statin in addition to carvedilol. He has been on Lasix at 20 mg p.o. We would continue. Once he is back to baseline, it would be okay from my standpoint to discharge home.
--- NOTE | 2017-12-07 14:29 | PRG ---
DATE OF SERVICE: 12/07/2017 SUBJECTIVE: Mark Hirsch was cooperative today. He says he feels a little better. PHYSICAL EXAMINATION: VITAL SIGNS: He is afebrile, heart rate 64, respiratory rate 18, oximetry is 90% on room air, blood pressure 120/74. LUNGS: Clear anteriorly. HEART: Regular rhythm. ABDOMEN: Soft. IMAGING DATA: I reviewed today's chest radiograph. He has a tortuous aorta. He has very small infi ltrate at his right base, some of which abuts the pleura. This may be slightly improved compared to yesterday's film. IMPRESSION: Possible pneumonia. The argument that this may be cardiac mediated is that his radiogra ph is improved overnight which we normally do not see with an infectious process. Still has some sub tle abnormalities at the right base, especially around that area abutting the pleura, but would not b e typical for cardiogenic pulmonary edema. We will continue current care.
--- NOTE | 2017-12-07 15:19 | RAD ---
2 VIEWS CHEST: Date: 12/07/17 PROVIDED CLINICAL HISTORY: Follow-up infiltrate and effusion. FINDINGS: Comparison made with the study dated 12/06/17. Cardiac and mediastinal silhouette are unchanged in appearance. Prominence of the pulmonary interstit ium diffusely is again seen. Blunting of the right costophrenic angle laterally is again seen. Patchy parenchymal opacity at the right lung base is less conspicuous but persists on the current study. No evidence for pneumothorax. IMPRESSION: 1. Nonspecific diffuse prominence of the pulmonary interstitium. 2. Right lower lung zone air space disease which may reflect pneumonia. POS: [facility]
[2017-12-07] MEDS: Atorvastatin Calcium 40 MG TAB PO SCH (20:10)
[2017-12-07] MEDS: Famotidine 20 MG TAB PO SCH (20:10)
[2017-12-08 00:37] LABS: Vancomycin, Trough 15.6 ug/mL
[2017-12-08] MEDS: Vancomycin HCl 1 GM in Premix Bag 1 BAG IVPB SCH (00:41)
[2017-12-08] MEDS: Multivitamin W/ Minerals 1 TAB PO SCH (08:31)
[2017-12-08] MEDS: Lisinopril 2.5 MG TAB PO SCH (08:31)
[2017-12-08] MEDS: Cefepime 2 GM, Syringe 2.5 ML in Sodium Chloride 0.9% 10 ML SLOW IVP SCH (08:31)
[2017-12-08] MEDS: Enoxaparin Sodium 30 MG/0.3 ML SYRINGE SC SCH (08:32)
[2017-12-08] MEDS: Carvedilol 3.125 MG TAB PO SCH ×2 (08:32→21:28)
[2017-12-08] MEDS: Clopidogrel Bisulfate 75 MG TAB PO SCH (08:32)
[2017-12-08] MEDS: guaiFENesin ER 600 MG TAB PO SCH ×3 (08:32→21:30)
[2017-12-08] MEDS: Saccharomyces boulardii 250 MG CAP PO SCH (08:32)
[2017-12-08] MEDS: Furosemide 20 MG TAB PO SCH ×2 (08:32→14:40)
--- NOTE | 2017-12-08 09:09 | PDOC.PN ---
- Subjective Encounter Start Date: 12/08/17 Encounter Start Time: 07:10 today he has nausea, he has shoulder pain, he denies dyspnea, no fever, he does not feel good to go home today Patient seen and examined. No overnight events - Objective Resuscitation Status: Resuscitation Status FULL:Full Resuscitation MAR Reviewed: Yes Vital Signs & Weight: Vital Signs (12 hours) Temp Pulse Resp BP BP BP Pulse Ox 12/08/17 08:31 72 127/80 12/08/17 07:50 97.9 F 72 18 127/80 98 12/08/17 06:28 78 16 99 12/08/17 04:00 98.6 F 69 18 104/63 12/08/17 00:00 98.5 F 77 16 127/82 98 12/07/17 23:57 62 16 98 Weight Admit Weight 154 lb 4 oz Weight 148 lb 12.8 oz I&O: 12/07/17 12/08/17 12/09/17 05:59 06:59 06:59 Intake Total Output Total Balance Result Diagrams: 12/07/17 04:22 12/07/17 04:22 EKG Reviewed by me: Yes (nsr) Phys Exam - Physical Examination Constitutional: NAD HEENT: PERRLA, moist MMs, sclera anicteric Neck: no JVD, supple Respiratory: no wheezing, no rales, no rhonchi reduced air entry at base Cardiovascular: RRR, no significant murmur, no rub Gastrointestinal: soft, non-tender, no distention, positive bowel sounds Musculoskeletal: no edema, pulses present Neurological: non-focal, normal sensation, moves all 4 limbs Psychiatric: normal affect, A&O x 3 Skin: no rash, normal turgor Dx/Plan (1) Acute respiratory failure with hypoxia Code(s): J96.01 - ACUTE RESPIRATORY FAILURE WITH HYPOXIA Status: Resolved (2) Community acquired bacterial pneumonia Code(s): J15.9 - UNSPECIFIED BACTERIAL PNEUMONIA Status: Acute (3) Demand ischemia of myocardium Code(s): I24.8 - OTHER FORMS OF ACUTE ISCHEMIC HEART DISEASE Status: Acute (4) Elevated brain natriuretic peptide (BNP) level Code(s): R79.89 - OTHER SPECIFIED ABNORMAL FINDINGS OF BLOOD CHEMISTRY Status : Acute Comment: due to systolic CHF (5) Hypokalemia Code(s): E87.6 - HYPOKALEMIA Status: Resolved (6) Lactic acidosis Code(s): E87.2 - ACIDOSIS Status: Resolved (7) Sepsis with acute organ dysfunction Code(s): A41.9 - SEPSIS, UNSPECIFIED ORGANISM; R65.20 - SEVERE SEPSIS WITHOUT SEPTIC SHOCK Status: Acute (8) Anemia, normocytic normochromic Code(s): D64.9 - ANEMIA, UNSPECIFIED Status: Chronic (9) CAD (coronary artery disease) Code(s): I25.10 - ATHSCL HEART DISEASE OF [place] CORONARY ARTERY W/O ANG PCTRS Status: Chronic (10) Dyslipidemia Code(s): E78.5 - HYPERLIPIDEMIA, UNSPECIFIED Status: Chronic (11) Protein-calorie malnutrition, mild Code(s): E44.1 - MILD PROTEIN-CALORIE MALNUTRITION Status: Chronic (12) Acute on chronic systolic (congestive) heart failure Code(s): I50.23 - ACUTE ON CHRONIC SYSTOLIC (CONGESTIVE) HEART FAILURE Status : Acute - Plan cont current plan of care, continue antibiotics * DC vancomycin * cardiology recommendation noted * pt has not decided about AICD, on medical therapy for CHF * continue cefeime and levaquin * tomorrow will discharge on oral levaquin * medication reviewed as below * symptomatic treatment. Review of Systems - Review of Systems Constitutional: negative: fever, chills, sweats, weakness, malaise, other Eyes: negative: Pain, Vision Change, Conjunctivae Inflammation, Eyelid Inflammation, Redness, Other ENT: negative: Ear Pain, Ear Discharge, Nose Pain, Nose Discharge, Nose Congestion, Mouth Pain, Mouth Swelling, Throat Pain, Throat Swelling, Other Respiratory: negative: Cough, Dry, Shortness of Breath, Hemoptysis, SOB with Excertion, Pleuritic Pain, Sputum, Wheezing Cardiovascular: negative: chest pain, palpitations, orthopnea, paroxysmal nocturnal dyspnea, edema, light headedness, other Gastrointestinal: Nausea. negative: Vomiting, Abdominal Pain, Diarrhea, Constipation, Melena, Hematochezia, Other Genitourinary: negative: Dysuria, Frequency, Incontinence, Hematuria, Retention , Other Musculoskeletal: Shoulder Pain. negative: Neck Pain, Arm Pain, Back Pain, Hand Pain, Leg Pain, Foot Pain, Other Skin: negative: Rash, Lesions, Luiz, Bruising, Other - Medications/Allergies Allergies/Adverse Reactions: Allergies Allergy/AdvReac Type Severity Reaction Status Date / Time penicillin G Allergy Verified 12/05/17 13:02 Medications: Current Medications Acetaminophen (Tylenol) 650 mg PO Q4H PRN PRN Reason: Headache/Fever or Pain Hydrocodone Bitart/Acetaminophen ([place] 5/325) 1 tab PO Q4H PRN PRN Reason: Moderate Pain (4-6) Last Admin: 12/07/17 20:09 Dose: 1 tab Al Hydroxide/Mg Hydroxide (Maalox) 30 ml PO Q6H PRN PRN Reason: Heartburn or Indigestion Albuterol/Ipratropium (Duoneb) 3 ml NEB [id number] [facility] Last Admin: 12/08/17 06:28 Dose: 3 ml Artificial Tears (Tears Naturale) 0 drop EA EYE PRN PRN PRN Reason: Dry Eyes Aspirin (Aspirin Chewable) 81 mg PO DAILY [facility] Last Admin: 12/08/17 08:32 Dose: 81 mg Atorvastatin Calcium (Lipitor) 80 mg PO HS [facility] Last Admin: 12/07/17 20:10 Dose: 80 mg Carvedilol (Coreg) 3.125 mg PO BID [facility] Last Admin: 12/08/17 08:32 Dose: 3.125 mg Clopidogrel Bisulfate (Plavix) 75 mg PO DAILY [facility] Last Admin: 12/08/17 08:32 Dose: 75 mg Enoxaparin Sodium (Lovenox) 30 mg SC 0900 [facility] Last Admin: 12/08/17 08:32 Dose: Not Given Famotidine (Pepcid) 20 mg PO 2100 [facility] Last Admin: 12/07/17 20:10 Dose: 20 mg Furosemide (Lasix) 20 mg PO 0900,1400 [facility] Last Admin: 12/08/17 08:32 Dose: 20 mg Guaifenesin (Robitussin Sf) 200 mg PO Q4H PRN PRN Reason: Cough Guaifenesin (Mucinex) 600 mg PO TID [facility] Last Admin: 12/08/17 08:32 Dose: Not Given Hydralazine HCl (Apresoline) 10 mg SLOW IVP Q4H PRN PRN Reason: Systolic BP > 180 Levofloxacin 500 mg/ Device 100 mls @ 100 mls/hr IVPB 1800 [facility] Last Admin: 12/07/17 17:34 Dose: 100 mls Cefepime HCl 2 gm/ Syringe 2.5 (ml/ Sodium Chloride) 12.5 mls @ 150 mls/hr SLOW IVP [facility] Last Admin: 12/08/17 08:31 Dose: 12.5 mls Iron/Minerals/Multivitamins (Theragran M) 1 tab PO DAILY [facility] Last Admin: 12/08/17 08:31 Dose: 1 tab Lisinopril (Zestril) 2.5 mg PO DAILY [facility] Last Admin: 12/08/17 08:31 Dose: 2.5 mg Loperamide HCl (Imodium) 2 mg PO PRN PRN PRN Reason: Diarrhea/Loose Stools Loratadine (Claritin) 10 mg PO DAILYPRN PRN PRN Reason: Sinus Symptoms Magnesium Hydroxide (Milk Of Magnesium) 30 ml PO DAILYPRN PRN PRN Reason: Constipation Mineral Oil/White Petrolatum (Eucerin Cream) 0 gm TOP BIDPRN PRN PRN Reason: Dry Skin Nitroglycerin (Nitrostat) 0.4 mg SL Q5MIN PRN PRN Reason: Chest Pain Ondansetron HCl (Zofran Odt) 4 mg PO Q6H PRN PRN Reason: Nausea/Vomiting Ondansetron HCl (Zofran) 4 mg IVP Q6H PRN PRN Reason: Nausea/Vomiting Last Admin: 12/08/17 08:30 Dose: 4 mg Phenol (Chloraseptic [place] 180 Ml Bot) 0 ml PO PRN PRN PRN Reason: Sore Throat Saccharomyces Boulardii (Florastor) 250 mg PO DAILY [facility] Last Admin: 12/08/17 08:32 Dose: 250 mg Senna (Senokot) 2 tab PO HSPRN PRN PRN Reason: Constipation Sodium Chloride ([place] Nasal [place] 0.65%) 0 ml EA NARE QIDPRN PRN PRN Reason: Nasal Congestion Sodium Chloride (Flush - Normal Saline) 10 ml IVF Q12HR [facility] Last Admin: 12/07/17 20:11 Dose: 10 ml Sodium Chloride (Flush - Normal Saline) 10 ml IVF PRN PRN PRN Reason: Saline Flush Zolpidem Tartrate (Ambien) 5 mg PO HSPRN PRN PRN Reason: Insomnia
[2017-12-08] MEDS: HYDROcodone/Acetaminophen 5/325 mg Tablet PO PRN ×2 (12:00→21:27)
[2017-12-08] MEDS: Cefdinir 300 MG CAP PO SCH (21:28)
[2017-12-08] MEDS: Atorvastatin Calcium 40 MG TAB PO SCH (21:28)
[2017-12-08] MEDS: Famotidine 20 MG TAB PO SCH (21:28)
--- NOTE | 2017-12-08 21:55 | PRG ---
DATE OF SERVICE: 12/08/2017 SUBJECTIVE: Mark Hirsch was complaining of nausea this morning. He says he is feeling better when I rounded on him. OBJECTIVE: GENERAL: He is in no distress. VITAL SIGNS: He is afebrile, heart rate 65, respiratory rate 16, oximetry 98 on room air, blood pres sure 114/66. LUNGS: Clear. CARDIOVASCULAR: Regular rhythm. ABDOMEN: Soft. IMPRESSION: 1. Nausea of unclear etiology, ? medication-induced 2. Possible pneumonia. 3. Chronic systolic heart failure. As discussed yesterday, there was slight improvement to his radiograph when I reviewed this. I would switch him to p.o. antimicrobial therapy at this point. He is allergic to PENICILLIN by report. Om nicef would be a reasonable option. Given that he is nauseated, Levaquin may make him more nauseated . It could also be that the IV Levaquin is the cause of the nausea. I answered all of his questions to satisfaction.
[2017-12-09] MEDS: guaiFENesin ER 600 MG TAB PO SCH ×2 (08:52→21:01)
[2017-12-09] MEDS: Lisinopril 2.5 MG TAB PO SCH (08:52)
[2017-12-09] MEDS: Saccharomyces boulardii 250 MG CAP PO SCH (08:52)
[2017-12-09] MEDS: Cefdinir 300 MG CAP PO SCH ×2 (08:52→20:54)
[2017-12-09] MEDS: HYDROcodone/Acetaminophen 5/325 mg Tablet PO PRN ×2 (08:53→14:45)
[2017-12-09] MEDS: Clopidogrel Bisulfate 75 MG TAB PO SCH (08:53)
[2017-12-09] MEDS: Furosemide 20 MG TAB PO SCH ×2 (08:53→14:51)
[2017-12-09] MEDS: Carvedilol 3.125 MG TAB PO SCH ×2 (08:53→20:51)
[2017-12-09] MEDS: Multivitamin W/ Minerals 1 TAB PO SCH (08:53)
[2017-12-09] MEDS: Enoxaparin Sodium 30 MG/0.3 ML SYRINGE SC SCH (08:56)
--- NOTE | 2017-12-09 09:36 | PDOC.PN ---
- Subjective Encounter Start Date: 12/09/17 Encounter Start Time: 07:20 Patient seen and examined. No new complaints. No overnight events - Objective Resuscitation Status: Resuscitation Status FULL:Full Resuscitation MAR Reviewed: Yes Vital Signs & Weight: Vital Signs (12 hours) Temp Pulse Pulse Pulse Resp BP BP 12/09/17 08:52 73 12/09/17 08:50 98.1 F 73 24 H 12/09/17 08:29 80 66 127/65 118/59 L 12/09/17 08:00 98.1 F 73 24 H 12/09/17 04:00 98.1 F 73 16 12/09/17 00:25 67 16 12/09/17 00:00 98.3 F 68 16 BP Pulse Ox 12/09/17 08:52 12/09/17 08:50 99 12/09/17 08:29 12/09/17 08:00 118/68 99 12/09/17 04:00 103/57 L 99 12/09/17 00:25 98 12/09/17 00:00 110/67 98 Weight Admit Weight 154 lb 4 oz Weight 150 lb 6.143 oz I&O: 12/08/17 12/09/17 12/10/17 06:59 06:59 06:59 Intake Total 2711 Output Total 850 Balance 1861 Result Diagrams: 12/07/17 04:22 12/07/17 04:22 EKG Reviewed by me: Yes Phys Exam - Physical Examination Constitutional: NAD HEENT: PERRLA, moist MMs, sclera anicteric Neck: no JVD, supple Respiratory: no wheezing, no rales, no rhonchi Cardiovascular: RRR, no significant murmur, no rub Gastrointestinal: soft, non-tender, no distention, positive bowel sounds Musculoskeletal: no edema, pulses present Neurological: non-focal, normal sensation, moves all 4 limbs Psychiatric: normal affect, A&O x 3 Skin: no rash, normal turgor Dx/Plan (1) Acute respiratory failure with hypoxia Code(s): J96.01 - ACUTE RESPIRATORY FAILURE WITH HYPOXIA Status: Resolved (2) Community acquired bacterial pneumonia Code(s): J15.9 - UNSPECIFIED BACTERIAL PNEUMONIA Status: Acute (3) Demand ischemia of myocardium Code(s): I24.8 - OTHER FORMS OF ACUTE ISCHEMIC HEART DISEASE Status: Acute (4) Elevated brain natriuretic peptide (BNP) level Code(s): R79.89 - OTHER SPECIFIED ABNORMAL FINDINGS OF BLOOD CHEMISTRY Status : Acute Comment: due to systolic CHF (5) Hypokalemia Code(s): E87.6 - HYPOKALEMIA Status: Resolved (6) Lactic acidosis Code(s): E87.2 - ACIDOSIS Status: Resolved (7) Sepsis with acute organ dysfunction Code(s): A41.9 - SEPSIS, UNSPECIFIED ORGANISM; R65.20 - SEVERE SEPSIS WITHOUT SEPTIC SHOCK Status: Acute (8) Anemia, normocytic normochromic Code(s): D64.9 - ANEMIA, UNSPECIFIED Status: Chronic (9) CAD (coronary artery disease) Code(s): I25.10 - ATHSCL HEART DISEASE OF [place] CORONARY ARTERY W/O ANG PCTRS Status: Chronic (10) Dyslipidemia Code(s): E78.5 - HYPERLIPIDEMIA, UNSPECIFIED Status: Chronic (11) Protein-calorie malnutrition, mild Code(s): E44.1 - MILD PROTEIN-CALORIE MALNUTRITION Status: Chronic (12) Acute on chronic systolic (congestive) heart failure Code(s): I50.23 - ACUTE ON CHRONIC SYSTOLIC (CONGESTIVE) HEART FAILURE Status : Acute - Plan cont current plan of care, continue antibiotics * refuses for aicd vs life vest * medication reviewed as below * symptomatic treatment * T3 * DC to home * see discharge bobby. Review of Systems - Review of Systems ENT: negative: Ear Pain, Ear Discharge, Nose Pain, Nose Discharge, Nose Congestion, Mouth Pain, Mouth Swelling, Throat Pain, Throat Swelling, Other Respiratory: negative: Cough, Dry, Shortness of Breath, Hemoptysis, SOB with Excertion, Pleuritic Pain, Sputum, Wheezing Cardiovascular: negative: chest pain, palpitations, orthopnea, paroxysmal nocturnal dyspnea, edema, light headedness, other Gastrointestinal: negative: Nausea, Vomiting, Abdominal Pain, Diarrhea, Constipation, Melena, Hematochezia, Other Genitourinary: negative: Dysuria, Frequency, Incontinence, Hematuria, Retention , Other Musculoskeletal: negative: Neck Pain, Shoulder Pain, Arm Pain, Back Pain, Hand Pain, Leg Pain, Foot Pain, Other Skin: negative: Rash, Lesions, Luiz, Bruising, Other - Medications/Allergies Allergies/Adverse Reactions: Allergies Allergy/AdvReac Type Severity Reaction Status Date / Time penicillin G Allergy Verified 12/05/17 13:02 Medications: Current Medications Acetaminophen (Tylenol) 650 mg PO Q4H PRN PRN Reason: Headache/Fever or Pain Hydrocodone Bitart/Acetaminophen ([place] 5/325) 1 tab PO Q4H PRN PRN Reason: Moderate Pain (4-6) Last Admin: 12/09/17 08:53 Dose: 1 tab Al Hydroxide/Mg Hydroxide (Maalox) 30 ml PO Q6H PRN PRN Reason: Heartburn or Indigestion Albuterol/Ipratropium (Duoneb) 3 ml NEB A4PT-BT [facility] Last Admin: 12/09/17 06:19 Dose: Not Given Artificial Tears (Tears Naturale) 0 drop EA EYE PRN PRN PRN Reason: Dry Eyes Aspirin (Aspirin Chewable) 81 mg PO DAILY [facility] Last Admin: 12/09/17 08:53 Dose: 81 mg Atorvastatin Calcium (Lipitor) 80 mg PO HS [facility] Last Admin: 12/08/17 21:28 Dose: 80 mg Carvedilol (Coreg) 3.125 mg PO BID [facility] Last Admin: 12/09/17 08:53 Dose: 3.125 mg Cefdinir (Omnicef) 300 mg PO BID [facility] Last Admin: 12/09/17 08:52 Dose: 300 mg Clopidogrel Bisulfate (Plavix) 75 mg PO DAILY [facility] Last Admin: 12/09/17 08:53 Dose: 75 mg Enoxaparin Sodium (Lovenox) 30 mg SC 0900 [facility] Last Admin: 12/09/17 08:56 Dose: Not Given Famotidine (Pepcid) 20 mg PO 2100 [facility] Last Admin: 12/08/17 21:28 Dose: 20 mg Furosemide (Lasix) 20 mg PO 0900,1400 [facility] Last Admin: 12/09/17 08:53 Dose: 20 mg Guaifenesin (Robitussin Sf) 200 mg PO Q4H PRN PRN Reason: Cough Guaifenesin (Mucinex) 600 mg PO TID [facility] Last Admin: 12/09/17 08:52 Dose: Not Given Hydralazine HCl (Apresoline) 10 mg SLOW IVP Q4H PRN PRN Reason: Systolic BP > 180 Iron/Minerals/Multivitamins (Theragran M) 1 tab PO DAILY [facility] Last Admin: 12/09/17 08:53 Dose: 1 tab Lisinopril (Zestril) 2.5 mg PO DAILY [facility] Last Admin: 12/09/17 08:52 Dose: 2.5 mg Loperamide HCl (Imodium) 2 mg PO PRN PRN PRN Reason: Diarrhea/Loose Stools Loratadine (Claritin) 10 mg PO DAILYPRN PRN PRN Reason: Sinus Symptoms Magnesium Hydroxide (Milk Of Magnesium) 30 ml PO DAILYPRN PRN PRN Reason: Constipation Mineral Oil/White Petrolatum (Eucerin Cream) 0 gm TOP BIDPRN PRN PRN Reason: Dry Skin Nitroglycerin (Nitrostat) 0.4 mg SL Q5MIN PRN PRN Reason: Chest Pain Ondansetron HCl (Zofran Odt) 4 mg PO Q6H PRN PRN Reason: Nausea/Vomiting Ondansetron HCl (Zofran) 4 mg IVP Q6H PRN PRN Reason: Nausea/Vomiting Last Admin: 12/08/17 08:30 Dose: 4 mg Phenol (Chloraseptic [place] 180 Ml Bot) 0 ml PO PRN PRN PRN Reason: Sore Throat Saccharomyces Boulardii (Florastor) 250 mg PO DAILY [facility] Last Admin: 12/09/17 08:52 Dose: 250 mg Senna (Senokot) 2 tab PO HSPRN PRN PRN Reason: Constipation Sodium Chloride ([place] Nasal [place] 0.65%) 0 ml EA NARE QIDPRN PRN PRN Reason: Nasal Congestion Sodium Chloride (Flush - Normal Saline) 10 ml IVF Q12HR [facility] Last Admin: 12/09/17 08:56 Dose: 10 ml Sodium Chloride (Flush - Normal Saline) 10 ml IVF PRN PRN PRN Reason: Saline Flush Zolpidem Tartrate (Ambien) 5 mg PO HSPRN PRN PRN Reason: Insomnia
[2017-12-09 10:57] LABS: Anion Gap 10 mmol/L (10-20); BUN (Urea Nitrogen) 17 mg/dL (8.4-25.7); Calc. Creatinine Clearance 64 mL/min (70-130); Calcium 9.3 mg/dL (7.8-10.44); Carbon Dioxide 30 mmol/L (23-31); Chloride 100 mmol/L (98-107); Estimated GFR-MDRD 90; Glucose 108 mg/dL (83-110); Magnesium 2.3 mg/dL (1.6-2.6); Potassium 4.2 mmol/L (3.5-5.1); Sodium 136 mmol/L (136-145)
[2017-12-09] MEDS ORDERED: Amiodarone 200 MG TAB PO SCH (11:00)
--- NOTE | 2017-12-09 16:43 | PRG ---
DATE OF SERVICE: 12/09/2017 SERVICE: Pulmonary Medicine. INTERVAL HISTORY: The patient is doing outstanding from a respiratory standpoint. He denies any rik st pain, fevers, chills, nausea or vomiting. There has been no interval change to his condition. Th ere were no events overnight. He is looking forward to going home tomorrow. PHYSICAL EXAMINATION: VITAL SIGNS: Afebrile, pulse 66, blood pressure 114/67, respirations 16, saturation 99% on room air. GENERAL: The patient is awake, alert, no apparent distress. LUNGS: Excellent air entry with no prolonged expiratory phase, wheezing, rhonchi or crackles. HEART: Normal rate, regular. ABDOMEN: Soft, nontender, nondistended. Bowel sounds are positive. MUSCULOSKELETAL: No cyanosis or clubbing. There is no pitting in the bilateral lower extremities. NEUROLOGIC: Grossly nonfocal. LABORATORY DATA: BNP 808. Basic metabolic profile and magnesium are otherwise unremarkable. Influe nza A and B is unremarkable. ASSESSMENT: 1. Acute hypoxic respiratory failure, resolved. 2. Healthcare-associated pneumonia, unlikely. 3. Chronic systolic heart failure (20% ejection fraction). Overall, the patient's respiratory issues have essentially resolved. This was improved through a com bination of possible antibiotics and/or oral Lasix. I do believe that the Lasix had more to do with it. Antibiotics can be discontinued after a total duration of 7 days. From a purely lung standpoint , he is stable for transition out of the hospital, but we will need a repeat chest x-ray in 4-6 weeks in the outpatient setting. Pulmonary will sign off. Please call with additional questions or mike rns moving forward.
[2017-12-09] MEDS: Atorvastatin Calcium 40 MG TAB PO SCH (20:53)
[2017-12-09] MEDS: Amiodarone 200 MG TAB PO SCH (20:57)
[2017-12-09] MEDS: Famotidine 20 MG TAB PO SCH (22:19)
[2017-12-10] MEDS: guaiFENesin ER 600 MG TAB PO SCH ×4 (07:22→20:28)
[2017-12-10] MEDS: Amiodarone 200 MG TAB PO SCH ×2 (08:38→20:26)
[2017-12-10] MEDS: Enoxaparin Sodium 40 MG/0.4 ML SYRINGE SC SCH (08:38)
[2017-12-10] MEDS: Carvedilol 3.125 MG TAB PO SCH ×2 (08:38→20:27)
[2017-12-10] MEDS: Clopidogrel Bisulfate 75 MG TAB PO SCH (08:38)
[2017-12-10] MEDS: Cefdinir 300 MG CAP PO SCH ×2 (08:38→20:27)
[2017-12-10] MEDS: Furosemide 20 MG TAB PO SCH ×2 (08:38→14:59)
[2017-12-10] MEDS: Lisinopril 2.5 MG TAB PO SCH (08:38)
[2017-12-10] MEDS: Saccharomyces boulardii 250 MG CAP PO SCH (08:39)
[2017-12-10] MEDS: Multivitamin W/ Minerals 1 TAB PO SCH (08:39)
--- NOTE | 2017-12-10 09:04 | PDOC.PN ---
- Subjective Encounter Start Date: 12/10/17 Encounter Start Time: 07:40 c/o left side chest discomfort, no nausea, no fever, has cough - Objective Resuscitation Status: Resuscitation Status FULL:Full Resuscitation MAR Reviewed: Yes Vital Signs & Weight: Vital Signs (12 hours) Temp Pulse Resp BP Pulse Ox 12/10/17 08:35 97.9 F 76 18 118/67 98 12/10/17 04:00 98.4 F 66 19 119/74 98 Weight Admit Weight 154 lb 4 oz Weight 149 lb I&O: 12/09/17 12/10/17 12/11/17 06:59 06:59 06:59 Intake Total 2711 680 Output Total 850 Balance 1861 680 Result Diagrams: 12/07/17 04:22 12/09/17 10:29 EKG Reviewed by me: Yes Phys Exam - Physical Examination Constitutional: NAD HEENT: PERRLA, moist MMs, sclera anicteric Neck: no JVD, supple Respiratory: no wheezing, no rales, no rhonchi Cardiovascular: RRR, no significant murmur, no rub Gastrointestinal: soft, non-tender, no distention, positive bowel sounds Musculoskeletal: no edema, pulses present Neurological: non-focal, normal sensation Lymphatic: no nodes Psychiatric: normal affect, A&O x 3 Skin: no rash, normal turgor Dx/Plan (1) Acute respiratory failure with hypoxia Code(s): J96.01 - ACUTE RESPIRATORY FAILURE WITH HYPOXIA Status: Resolved (2) Community acquired bacterial pneumonia Code(s): J15.9 - UNSPECIFIED BACTERIAL PNEUMONIA Status: Acute (3) Demand ischemia of myocardium Code(s): I24.8 - OTHER FORMS OF ACUTE ISCHEMIC HEART DISEASE Status: Acute (4) Elevated brain natriuretic peptide (BNP) level Code(s): R79.89 - OTHER SPECIFIED ABNORMAL FINDINGS OF BLOOD CHEMISTRY Status : Acute Comment: due to systolic CHF (5) Hypokalemia Code(s): E87.6 - HYPOKALEMIA Status: Resolved (6) Lactic acidosis Code(s): E87.2 - ACIDOSIS Status: Resolved (7) Sepsis with acute organ dysfunction Code(s): A41.9 - SEPSIS, UNSPECIFIED ORGANISM; R65.20 - SEVERE SEPSIS WITHOUT SEPTIC SHOCK Status: Acute (8) Anemia, normocytic normochromic Code(s): D64.9 - ANEMIA, UNSPECIFIED Status: Chronic (9) CAD (coronary artery disease) Code(s): I25.10 - ATHSCL HEART DISEASE OF [place] CORONARY ARTERY W/O ANG PCTRS Status: Chronic (10) Dyslipidemia Code(s): E78.5 - HYPERLIPIDEMIA, UNSPECIFIED Status: Chronic (11) Protein-calorie malnutrition, mild Code(s): E44.1 - MILD PROTEIN-CALORIE MALNUTRITION Status: Chronic (12) Acute on chronic systolic (congestive) heart failure Code(s): I50.23 - ACUTE ON CHRONIC SYSTOLIC (CONGESTIVE) HEART FAILURE Status : Acute (13) NSVT (nonsustained ventricular tachycardia) Code(s): I47.2 - VENTRICULAR TACHYCARDIA Status: Acute - Plan cont current plan of care, continue antibiotics * await stress test result from [facility] * based on that will decide if he needs any other testing or not * will check bnp, cardiac enzyme * medication reviewed as below * symptomatic treatment. * currently on amiodarone, on dc amiodarone taper * pt refuses for aicd Review of Systems - Review of Systems Constitutional: negative: fever, chills, sweats, weakness, malaise, other Eyes: negative: Pain, Vision Change, Conjunctivae Inflammation, Eyelid Inflammation, Redness, Other ENT: negative: Ear Pain, Ear Discharge, Nose Pain, Nose Discharge, Nose Congestion, Mouth Pain, Mouth Swelling, Throat Pain, Throat Swelling, Other Respiratory: negative: Cough, Dry, Shortness of Breath, Hemoptysis, SOB with Excertion, Pleuritic Pain, Sputum, Wheezing Cardiovascular: chest pain. negative: palpitations, orthopnea, paroxysmal nocturnal dyspnea, edema, light headedness, other Gastrointestinal: negative: Nausea, Vomiting, Abdominal Pain, Diarrhea, Constipation, Melena, Hematochezia, Other Genitourinary: negative: Dysuria, Frequency, Incontinence, Hematuria, Retention , Other Musculoskeletal: negative: Neck Pain, Shoulder Pain, Arm Pain, Back Pain, Hand Pain, Leg Pain, Foot Pain, Other Skin: negative: Rash, Lesions, Luiz, Bruising, Other - Medications/Allergies Allergies/Adverse Reactions: Allergies Allergy/AdvReac Type Severity Reaction Status Date / Time penicillin G Allergy Verified 12/05/17 13:02 Medications: Current Medications Acetaminophen (Tylenol) 650 mg PO Q4H PRN PRN Reason: Headache/Fever or Pain Hydrocodone Bitart/Acetaminophen ([place] 5/325) 1 tab PO Q4H PRN PRN Reason: Moderate Pain (4-6) Last Admin: 12/09/17 14:45 Dose: 1 tab Al Hydroxide/Mg Hydroxide (Maalox) 30 ml PO Q6H PRN PRN Reason: Heartburn or Indigestion Albuterol/Ipratropium (Duoneb) 3 ml NEB [id number] [facility] Last Admin: 12/10/17 07:04 Dose: 3 ml Amiodarone HCl (Cordarone) 400 mg PO BID [facility] Last Admin: 12/10/17 08:38 Dose: Not Given Artificial Tears (Tears Naturale) 0 drop EA EYE PRN PRN PRN Reason: Dry Eyes Aspirin (Aspirin Chewable) 81 mg PO DAILY [facility] Last Admin: 12/10/17 08:38 Dose: 81 mg Atorvastatin Calcium (Lipitor) 80 mg PO HS [facility] Last Admin: 12/09/17 20:53 Dose: 80 mg Carvedilol (Coreg) 3.125 mg PO BID [facility] Last Admin: 12/10/17 08:38 Dose: 3.125 mg Cefdinir (Omnicef) 300 mg PO BID [facility] Last Admin: 12/10/17 08:38 Dose: 300 mg Clopidogrel Bisulfate (Plavix) 75 mg PO DAILY [facility] Last Admin: 12/10/17 08:38 Dose: 75 mg Enoxaparin Sodium (Lovenox) 40 mg SC 0900 [facility] Last Admin: 12/10/17 08:38 Dose: Not Given Famotidine (Pepcid) 20 mg PO 2100 [facility] Last Admin: 12/09/17 22:19 Dose: Not Given Furosemide (Lasix) 20 mg PO 0900,1400 [facility] Last Admin: 12/10/17 08:38 Dose: 20 mg Guaifenesin (Robitussin Sf) 200 mg PO Q4H PRN PRN Reason: Cough Guaifenesin (Mucinex) 600 mg PO TID [facility] Last Admin: 12/10/17 08:38 Dose: Not Given Hydralazine HCl (Apresoline) 10 mg SLOW IVP Q4H PRN PRN Reason: Systolic BP > 180 Iron/Minerals/Multivitamins (Theragran M) 1 tab PO DAILY [facility] Last Admin: 12/10/17 08:39 Dose: 1 tab Lisinopril (Zestril) 2.5 mg PO DAILY [facility] Last Admin: 12/10/17 08:38 Dose: 2.5 mg Loperamide HCl (Imodium) 2 mg PO PRN PRN PRN Reason: Diarrhea/Loose Stools Loratadine (Claritin) 10 mg PO DAILYPRN PRN PRN Reason: Sinus Symptoms Magnesium Hydroxide (Milk Of Magnesium) 30 ml PO DAILYPRN PRN PRN Reason: Constipation Mineral Oil/White Petrolatum (Eucerin Cream) 0 gm TOP BIDPRN PRN PRN Reason: Dry Skin Nitroglycerin (Nitrostat) 0.4 mg SL Q5MIN PRN PRN Reason: Chest Pain Ondansetron HCl (Zofran Odt) 4 mg PO Q6H PRN PRN Reason: Nausea/Vomiting Ondansetron HCl (Zofran) 4 mg IVP Q6H PRN PRN Reason: Nausea/Vomiting Last Admin: 12/08/17 08:30 Dose: 4 mg Phenol (Chloraseptic [place] 180 Ml Bot) 0 ml PO PRN PRN PRN Reason: Sore Throat Saccharomyces Boulardii (Florastor) 250 mg PO DAILY [facility] Last Admin: 12/10/17 08:39 Dose: 250 mg Senna (Senokot) 2 tab PO HSPRN PRN PRN Reason: Constipation Last Admin: 12/09/17 20:51 Dose: 2 tab Sodium Chloride ([place] Nasal [place] 0.65%) 0 ml EA NARE QIDPRN PRN PRN Reason: Nasal Congestion Sodium Chloride (Flush - Normal Saline) 10 ml IVF Q12HR [facility] Last Admin: 12/10/17 08:41 Dose: Not Given Sodium Chloride (Flush - Normal Saline) 10 ml IVF PRN PRN PRN Reason: Saline Flush Zolpidem Tartrate (Ambien) 5 mg PO HSPRN PRN PRN Reason: Insomnia
[2017-12-10 09:45] LABS: CKMB 1.1 ng/mL (0-6.6); Troponin I 0.015 ng/mL (< 0.028)
--- NOTE | 2017-12-10 10:25 | DIS ---
DATE OF ADMISSION: 12/05/2017 DATE OF DISCHARGE: 12/10/2017 PRIMARY CARE PHYSICIAN: Cali Olson M.D. DISCHARGE DISPOSITION: Home. PRIMARY DISCHARGE DIAGNOSES: 1. Acute on chronic systolic congestive heart failure. 2. Community-acquired bacterial pneumonia. 3. Demand ischemia of myocardium. 4. Sepsis with acute organ dysfunction. 5. Lactic acidosis, resolved. 6. Hypokalemia, resolved. 7. Acute respiratory failure with hypoxia, resolved. SECONDARY DISCHARGE DIAGNOSES: Mild protein calorie malnutrition, dyslipidemia, coronary artery dise ase, chronic and normocytic normochromic anemia. PRIMARY PROCEDURE/OPERATION: None. RADIOLOGICAL INVESTIGATION: Echocardiography showed EF 20%-25%. SIGNIFICANT LABORATORY DATA: WBC 8.5, hemoglobin 11.8, platelet 200. Sodium 136, creatinine 0.99, c alcium 9.3. Cardiac enzymes negative. BNP 312.0, LDL 61. TSH 0.96. Liver enzymes normal. Troponi n 0.171. Influenza screen negative. DISCHARGE MEDICATIONS: Tylenol #3 one or two tablets p.o. q.6 hourly p.r.n.; amiodarone 400 mg p.o. b.i.d. for 7 days, then 200 mg p.o. b.i.d. for 7 days and then 200 mg p.o. daily; aspirin 81 mg p.o. daily; Lipitor 80 mg p.o. daily; Coreg 3.125 mg p.o. b.i.d.; Omnicef 300 mg p.o. b.i.d. for 5 more da ys; Plavix 75 mg p.o. daily; Lasix 20 mg p.o. b.i.d.; lisinopril 2.5 mg p.o. daily; ranitidine 150 mg p.o. daily; Florastor 250 mg p.o. daily for 5 more days; Aldactone 25 mg p.o. daily. CONTRAINDICATIONS: None. CODE STATUS: FULL CODE. INPATIENT CONSULTANTS: Dr. Berman was consulted while in hospital. Dr. Joyce was following aj bowen in hospital. TEST RESULTS PENDING ON DISCHARGE: None. ALLERGIES: PENICILLIN. DISCHARGE PLAN: Post hospital, patient will follow up with primary care physician, Heart Failure Cli shikha and Cardiology as instructed. HOSPITAL COURSE: A 72-year-old male who initially went to [facility] whe re he was diagnosed with pneumonia and congestive heart failure. He was transferred to our hospital. We admitted him to telemetry floor. We treated him with Lasix, IV antibiotic therapy with cefepime and Levaquin. This patient initially required CPAP at the [facility] and subsequently a lso in our emergency room because of his acute respiratory failure with hypoxia. Subsequently, he di d not require any CPAP machine and he was admitted to telemetry floor. With antibiotic therapy and with Lasix, patient's condition significantly improved. We did repeat est x-ray which also showed significant improvement. During this admission because of low blood pressure, we made necessary changes in dose of Coreg, martine nopril, and Lasix. He also had one episode of NSVT and that is why amiodarone was started. This pat ient reported to us that he had stress testing done at [facility] on 08/2017 and we ar e trying to get medical record of that stress test result, before we consider discharging him home. Cardiology is planning to do ischemic workup here in hospital if he had not done recently. This irineo ent was also offered AICD and LifeVest, but he refused to use both devices. He was having shoulder arthritis and shoulder pain and that is why we prescribed Tylenol #3 q.6 hourl y p.r.n. All new medication prescription sent to his pharmacy. Patient is seen and examined at bedside today. Please see my progress note from today for further de tail. The patient is overall doing very well. He is on room air, ambulatory, tolerating p.o. well. BNP is also improving and cardiac enzymes also negative. This patient will be discharged later on today if Cardiology okay. Plan of care and discharge plan discussed with the patient in detail.
[2017-12-10] MEDS: Atorvastatin Calcium 40 MG TAB PO SCH (20:27)
[2017-12-10] MEDS: Famotidine 20 MG TAB PO SCH (20:28)
[2017-12-11] MEDS: Carvedilol 3.125 MG TAB PO SCH (08:42)
[2017-12-11] MEDS: Cefdinir 300 MG CAP PO SCH ×2 (08:42→22:16)
[2017-12-11] MEDS: Enoxaparin Sodium 40 MG/0.4 ML SYRINGE SC SCH (08:42)
[2017-12-11] MEDS: Clopidogrel Bisulfate 75 MG TAB PO SCH (08:42)
[2017-12-11] MEDS: Amiodarone 200 MG TAB PO SCH ×2 (08:42→22:16)
[2017-12-11] MEDS: Multivitamin W/ Minerals 1 TAB PO SCH (08:43)
[2017-12-11] MEDS: Saccharomyces boulardii 250 MG CAP PO SCH (08:43)
[2017-12-11] MEDS: guaiFENesin ER 600 MG TAB PO SCH ×3 (08:43→22:18)
[2017-12-11] MEDS: Lisinopril 2.5 MG TAB PO SCH (08:43)
[2017-12-11] MEDS: Furosemide 20 MG TAB PO SCH ×2 (08:43→14:30)
--- NOTE | 2017-12-11 09:11 | PDOC.PN ---
- Subjective Encounter Start Date: 12/11/17 Encounter Start Time: 07:25 pt c/o left side chest pain, stress test result is non diagnostic no fever has shoulder pain on right side - Objective Resuscitation Status: Resuscitation Status FULL:Full Resuscitation MAR Reviewed: Yes Vital Signs & Weight: Vital Signs (12 hours) Temp Pulse Resp BP BP Pulse Ox 12/11/17 07:27 98.1 F 70 18 125/77 98 12/11/17 06:25 65 16 98 12/11/17 04:27 98.6 F 61 18 139/64 98 Weight Admit Weight 154 lb 4 oz Weight 148 lb 12.8 oz I&O: 12/10/17 12/11/17 12/12/17 06:59 06:59 06:59 Intake Total 680 1920 Output Total 420 Balance 680 1500 Result Diagrams: 12/07/17 04:22 12/09/17 10:29 EKG Reviewed by me: Yes Phys Exam - Physical Examination Constitutional: NAD HEENT: PERRLA, moist MMs, sclera anicteric Neck: no JVD, supple Respiratory: no wheezing, no rales, no rhonchi Cardiovascular: RRR, no significant murmur, no rub Gastrointestinal: soft, non-tender, no distention, positive bowel sounds Musculoskeletal: no edema, pulses present Neurological: non-focal, normal sensation, moves all 4 limbs Psychiatric: normal affect, A&O x 3 Skin: no rash, normal turgor Dx/Plan (1) Acute respiratory failure with hypoxia Code(s): J96.01 - ACUTE RESPIRATORY FAILURE WITH HYPOXIA Status: Resolved (2) Community acquired bacterial pneumonia Code(s): J15.9 - UNSPECIFIED BACTERIAL PNEUMONIA Status: Acute (3) Demand ischemia of myocardium Code(s): I24.8 - OTHER FORMS OF ACUTE ISCHEMIC HEART DISEASE Status: Acute (4) Elevated brain natriuretic peptide (BNP) level Code(s): R79.89 - OTHER SPECIFIED ABNORMAL FINDINGS OF BLOOD CHEMISTRY Status : Acute Comment: due to systolic CHF (5) Hypokalemia Code(s): E87.6 - HYPOKALEMIA Status: Resolved (6) Lactic acidosis Code(s): E87.2 - ACIDOSIS Status: Resolved (7) Sepsis with acute organ dysfunction Code(s): A41.9 - SEPSIS, UNSPECIFIED ORGANISM; R65.20 - SEVERE SEPSIS WITHOUT SEPTIC SHOCK Status: Acute (8) Anemia, normocytic normochromic Code(s): D64.9 - ANEMIA, UNSPECIFIED Status: Chronic (9) CAD (coronary artery disease) Code(s): I25.10 - ATHSCL HEART DISEASE OF [place] CORONARY ARTERY W/O ANG PCTRS Status: Chronic (10) Dyslipidemia Code(s): E78.5 - HYPERLIPIDEMIA, UNSPECIFIED Status: Chronic (11) Protein-calorie malnutrition, mild Code(s): E44.1 - MILD PROTEIN-CALORIE MALNUTRITION Status: Chronic (12) Acute on chronic systolic (congestive) heart failure Code(s): I50.23 - ACUTE ON CHRONIC SYSTOLIC (CONGESTIVE) HEART FAILURE Status : Acute (13) NSVT (nonsustained ventricular tachycardia) Code(s): I47.2 - VENTRICULAR TACHYCARDIA Status: Acute - Plan cont current plan of care, continue antibiotics * cardiology to decide if stress testing vs cardiac cath, pt is open to anything recommended for work up * medication reviewed as below * symptomatic treatment. Review of Systems - Review of Systems Eyes: negative: Pain, Vision Change, Conjunctivae Inflammation, Eyelid Inflammation, Redness, Other ENT: negative: Ear Pain, Ear Discharge, Nose Pain, Nose Discharge, Nose Congestion, Mouth Pain, Mouth Swelling, Throat Pain, Throat Swelling, Other Respiratory: negative: Cough, Dry, Shortness of Breath, Hemoptysis, SOB with Excertion, Pleuritic Pain, Sputum, Wheezing Cardiovascular: chest pain. negative: palpitations, orthopnea, paroxysmal nocturnal dyspnea, edema, light headedness, other Gastrointestinal: negative: Nausea, Vomiting, Abdominal Pain, Diarrhea, Constipation, Melena, Hematochezia, Other Genitourinary: negative: Dysuria, Frequency, Incontinence, Hematuria, Retention , Other Musculoskeletal: Shoulder Pain. negative: Neck Pain, Arm Pain, Back Pain, Hand Pain, Leg Pain, Foot Pain, Other Skin: negative: Rash, Lesions, Luiz, Bruising, Other - Medications/Allergies Allergies/Adverse Reactions: Allergies Allergy/AdvReac Type Severity Reaction Status Date / Time penicillin G Allergy Verified 12/05/17 13:02 Medications: Current Medications Acetaminophen (Tylenol) 650 mg PO Q4H PRN PRN Reason: Headache/Fever or Pain Hydrocodone Bitart/Acetaminophen ([place] 5/325) 1 tab PO Q4H PRN PRN Reason: Moderate Pain (4-6) Last Admin: 12/09/17 14:45 Dose: 1 tab Al Hydroxide/Mg Hydroxide (Maalox) 30 ml PO Q6H PRN PRN Reason: Heartburn or Indigestion Albuterol/Ipratropium (Duoneb) 3 ml NEB [id number] [facility] Last Admin: 12/11/17 06:25 Dose: 3 ml Amiodarone HCl (Cordarone) 400 mg PO BID [facility] Last Admin: 12/11/17 08:42 Dose: Not Given Artificial Tears (Tears Naturale) 0 drop EA EYE PRN PRN PRN Reason: Dry Eyes Aspirin (Aspirin Chewable) 81 mg PO DAILY [facility] Last Admin: 12/11/17 08:42 Dose: 81 mg Atorvastatin Calcium (Lipitor) 80 mg PO HS [facility] Last Admin: 12/10/17 20:27 Dose: 80 mg Carvedilol (Coreg) 3.125 mg PO BID [facility] Last Admin: 12/11/17 08:42 Dose: 3.125 mg Cefdinir (Omnicef) 300 mg PO BID [facility] Last Admin: 12/11/17 08:42 Dose: Not Given Clopidogrel Bisulfate (Plavix) 75 mg PO DAILY [facility] Last Admin: 12/11/17 08:42 Dose: 75 mg Enoxaparin Sodium (Lovenox) 40 mg SC 0900 [facility] Last Admin: 12/11/17 08:42 Dose: Not Given Famotidine (Pepcid) 20 mg PO 2100 [facility] Last Admin: 12/10/17 20:28 Dose: 20 mg Furosemide (Lasix) 20 mg PO 0900,1400 [facility] Last Admin: 12/11/17 08:43 Dose: 20 mg Guaifenesin (Robitussin Sf) 200 mg PO Q4H PRN PRN Reason: Cough Guaifenesin (Mucinex) 600 mg PO TID [facility] Last Admin: 12/11/17 08:43 Dose: Not Given Hydralazine HCl (Apresoline) 10 mg SLOW IVP Q4H PRN PRN Reason: Systolic BP > 180 Iron/Minerals/Multivitamins (Theragran M) 1 tab PO DAILY [facility] Last Admin: 12/11/17 08:43 Dose: 1 tab Lisinopril (Zestril) 2.5 mg PO DAILY [facility] Last Admin: 12/11/17 08:43 Dose: 2.5 mg Loperamide HCl (Imodium) 2 mg PO PRN PRN PRN Reason: Diarrhea/Loose Stools Loratadine (Claritin) 10 mg PO DAILYPRN PRN PRN Reason: Sinus Symptoms Magnesium Hydroxide (Milk Of Magnesium) 30 ml PO DAILYPRN PRN PRN Reason: Constipation Mineral Oil/White Petrolatum (Eucerin Cream) 0 gm TOP BIDPRN PRN PRN Reason: Dry Skin Nitroglycerin (Nitrostat) 0.4 mg SL Q5MIN PRN PRN Reason: Chest Pain Ondansetron HCl (Zofran Odt) 4 mg PO Q6H PRN PRN Reason: Nausea/Vomiting Ondansetron HCl (Zofran) 4 mg IVP Q6H PRN PRN Reason: Nausea/Vomiting Last Admin: 12/08/17 08:30 Dose: 4 mg Phenol (Chloraseptic [place] 180 Ml Bot) 0 ml PO PRN PRN PRN Reason: Sore Throat Saccharomyces Boulardii (Florastor) 250 mg PO DAILY [facility] Last Admin: 12/11/17 08:43 Dose: Not Given Senna (Senokot) 2 tab PO HSPRN PRN PRN Reason: Constipation Last Admin: 12/09/17 20:51 Dose: 2 tab Sodium Chloride ([place] Nasal [place] 0.65%) 0 ml EA NARE QIDPRN PRN PRN Reason: Nasal Congestion Sodium Chloride (Flush - Normal Saline) 10 ml IVF Q12HR [facility] Last Admin: 12/11/17 08:43 Dose: Not Given Sodium Chloride (Flush - Normal Saline) 10 ml IVF PRN PRN PRN Reason: Saline Flush Zolpidem Tartrate (Ambien) 5 mg PO HSPRN PRN PRN Reason: Insomnia
[2017-12-11] MEDS ORDERED: Spironolactone 25 MG TAB PO SCH (11:30)
[2017-12-11] MEDS: Carvedilol 6.25 MG TAB PO SCH (17:58)
[2017-12-11] MEDS: Atorvastatin Calcium 40 MG TAB PO SCH (22:17)
[2017-12-11] MEDS: Famotidine 20 MG TAB PO SCH (22:18)
[2017-12-12] MEDS ORDERED: Spironolactone 25 MG TAB PO SCH (08:00)
[2017-12-12 08:13] VITALS: BMI 20.1
[2017-12-12] MEDS: Amiodarone 200 MG TAB PO SCH (08:24)
[2017-12-12] MEDS: Enoxaparin Sodium 40 MG/0.4 ML SYRINGE SC SCH (08:24)
[2017-12-12] MEDS: guaiFENesin ER 600 MG TAB PO SCH (08:25)
[2017-12-12] MEDS: Furosemide 20 MG TAB PO SCH (08:26)
[2017-12-12] MEDS: Saccharomyces boulardii 250 MG CAP PO SCH (08:26)
[2017-12-12] MEDS: Multivitamin W/ Minerals 1 TAB PO SCH (08:26)
[2017-12-12] MEDS: Cefdinir 300 MG CAP PO SCH (08:26)
[2017-12-12] MEDS: Clopidogrel Bisulfate 75 MG TAB PO SCH (08:26)
[2017-12-12] MEDS: Carvedilol 6.25 MG TAB PO SCH (08:26)
[2017-12-12] MEDS ORDERED: Lisinopril 5 MG TAB PO SCH (09:00)
--- NOTE | 2017-12-12 09:30 | PDOC.PN ---
- Subjective Encounter Start Date: 12/12/17 Encounter Start Time: 09:20 Patient seen and examined. No new complaints. No overnight events - Objective Resuscitation Status: Resuscitation Status FULL:Full Resuscitation MAR Reviewed: Yes Vital Signs & Weight: Vital Signs (12 hours) Temp Pulse Resp BP Pulse Ox 12/12/17 08:21 98.3 F 63 18 121/71 99 12/12/17 07:38 60 14 96 12/12/17 04:00 98.5 F 67 18 119/73 99 Weight Admit Weight 154 lb 4 oz Weight 148 lb 11.2 oz I&O: 12/11/17 12/12/17 12/13/17 06:59 06:59 06:59 Intake Total 1920 1320 Output Total 420 1455 Balance 1500 -135 Result Diagrams: 12/07/17 04:22 12/09/17 10:29 EKG Reviewed by me: Yes Phys Exam - Physical Examination Constitutional: NAD HEENT: PERRLA, moist MMs, sclera anicteric Neck: no JVD, supple Respiratory: no wheezing, no rales, no rhonchi Cardiovascular: RRR, no significant murmur, no rub Gastrointestinal: soft, non-tender, no distention, positive bowel sounds Musculoskeletal: no edema, pulses present Neurological: non-focal, normal sensation, moves all 4 limbs Psychiatric: normal affect, A&O x 3 Skin: no rash, normal turgor Dx/Plan (1) Acute respiratory failure with hypoxia Code(s): J96.01 - ACUTE RESPIRATORY FAILURE WITH HYPOXIA Status: Resolved (2) Community acquired bacterial pneumonia Code(s): J15.9 - UNSPECIFIED BACTERIAL PNEUMONIA Status: Acute (3) Demand ischemia of myocardium Code(s): I24.8 - OTHER FORMS OF ACUTE ISCHEMIC HEART DISEASE Status: Acute (4) Elevated brain natriuretic peptide (BNP) level Code(s): R79.89 - OTHER SPECIFIED ABNORMAL FINDINGS OF BLOOD CHEMISTRY Status : Acute Comment: due to systolic CHF (5) Hypokalemia Code(s): E87.6 - HYPOKALEMIA Status: Resolved (6) Lactic acidosis Code(s): E87.2 - ACIDOSIS Status: Resolved (7) Sepsis with acute organ dysfunction Code(s): A41.9 - SEPSIS, UNSPECIFIED ORGANISM; R65.20 - SEVERE SEPSIS WITHOUT SEPTIC SHOCK Status: Acute (8) Anemia, normocytic normochromic Code(s): D64.9 - ANEMIA, UNSPECIFIED Status: Chronic (9) CAD (coronary artery disease) Code(s): I25.10 - ATHSCL HEART DISEASE OF [place] CORONARY ARTERY W/O ANG PCTRS Status: Chronic (10) Dyslipidemia Code(s): E78.5 - HYPERLIPIDEMIA, UNSPECIFIED Status: Chronic (11) Protein-calorie malnutrition, mild Code(s): E44.1 - MILD PROTEIN-CALORIE MALNUTRITION Status: Chronic (12) Acute on chronic systolic (congestive) heart failure Code(s): I50.23 - ACUTE ON CHRONIC SYSTOLIC (CONGESTIVE) HEART FAILURE Status : Acute (13) NSVT (nonsustained ventricular tachycardia) Code(s): I47.2 - VENTRICULAR TACHYCARDIA Status: Acute - Plan cont current plan of care, continue antibiotics * medication reviewed as below * symptomatic treatment * see discharge summery * stable for discharge as per cardiology. Review of Systems - Review of Systems ENT: negative: Ear Pain, Ear Discharge, Nose Pain, Nose Discharge, Nose Congestion, Mouth Pain, Mouth Swelling, Throat Pain, Throat Swelling, Other Respiratory: negative: Cough, Dry, Shortness of Breath, Hemoptysis, SOB with Excertion, Pleuritic Pain, Sputum, Wheezing Cardiovascular: negative: chest pain, palpitations, orthopnea, paroxysmal nocturnal dyspnea, edema, light headedness, other Gastrointestinal: negative: Nausea, Vomiting, Abdominal Pain, Diarrhea, Constipation, Melena, Hematochezia, Other Genitourinary: negative: Dysuria, Frequency, Incontinence, Hematuria, Retention , Other Musculoskeletal: negative: Neck Pain, Shoulder Pain, Arm Pain, Back Pain, Hand Pain, Leg Pain, Foot Pain, Other Skin: negative: Rash, Lesions, Luiz, Bruising, Other - Medications/Allergies Allergies/Adverse Reactions: Allergies Allergy/AdvReac Type Severity Reaction Status Date / Time penicillin G Allergy Verified 12/05/17 13:02 Medications: Current Medications Acetaminophen (Tylenol) 650 mg PO Q4H PRN PRN Reason: Headache/Fever or Pain Hydrocodone Bitart/Acetaminophen ([place] 5/325) 1 tab PO Q4H PRN PRN Reason: Moderate Pain (4-6) Last Admin: 12/09/17 14:45 Dose: 1 tab Al Hydroxide/Mg Hydroxide (Maalox) 30 ml PO Q6H PRN PRN Reason: Heartburn or Indigestion Albuterol/Ipratropium (Duoneb) 3 ml NEB [id number] [facility] Last Admin: 12/12/17 07:38 Dose: 3 ml Amiodarone HCl (Cordarone) 400 mg PO BID [facility] Last Admin: 12/12/17 08:24 Dose: Not Given Artificial Tears (Tears Naturale) 0 drop EA EYE PRN PRN PRN Reason: Dry Eyes Aspirin (Aspirin Chewable) 81 mg PO DAILY [facility] Last Admin: 12/12/17 08:26 Dose: 81 mg Atorvastatin Calcium (Lipitor) 80 mg PO HS [facility] Last Admin: 12/11/17 22:17 Dose: 80 mg Carvedilol (Coreg) 6.25 mg PO BID[facility] Last Admin: 12/12/17 08:26 Dose: 6.25 mg Cefdinir (Omnicef) 300 mg PO BID [facility] Last Admin: 12/12/17 08:26 Dose: 300 mg Clopidogrel Bisulfate (Plavix) 75 mg PO DAILY [facility] Last Admin: 12/12/17 08:26 Dose: 75 mg Enoxaparin Sodium (Lovenox) 40 mg SC 0900 [facility] Last Admin: 12/12/17 08:24 Dose: Not Given Famotidine (Pepcid) 20 mg PO 2100 [facility] Last Admin: 12/11/17 22:18 Dose: Not Given Furosemide (Lasix) 20 mg PO 0900,1400 [facility] Last Admin: 12/12/17 08:26 Dose: 20 mg Guaifenesin (Robitussin Sf) 200 mg PO Q4H PRN PRN Reason: Cough Guaifenesin (Mucinex) 600 mg PO TID [facility] Last Admin: 12/12/17 08:25 Dose: Not Given Hydralazine HCl (Apresoline) 10 mg SLOW IVP Q4H PRN PRN Reason: Systolic BP > 180 Iron/Minerals/Multivitamins (Theragran M) 1 tab PO DAILY [facility] Last Admin: 12/12/17 08:26 Dose: 1 tab Lisinopril (Zestril) 5 mg PO DAILY [facility] Last Admin: 12/12/17 08:26 Dose: 5 mg Loperamide HCl (Imodium) 2 mg PO PRN PRN PRN Reason: Diarrhea/Loose Stools Loratadine (Claritin) 10 mg PO DAILYPRN PRN PRN Reason: Sinus Symptoms Magnesium Hydroxide (Milk Of Magnesium) 30 ml PO DAILYPRN PRN PRN Reason: Constipation Mineral Oil/White Petrolatum (Eucerin Cream) 0 gm TOP BIDPRN PRN PRN Reason: Dry Skin Nitroglycerin (Nitrostat) 0.4 mg SL Q5MIN PRN PRN Reason: Chest Pain Ondansetron HCl (Zofran Odt) 4 mg PO Q6H PRN PRN Reason: Nausea/Vomiting Ondansetron HCl (Zofran) 4 mg IVP Q6H PRN PRN Reason: Nausea/Vomiting Last Admin: 12/08/17 08:30 Dose: 4 mg Phenol (Chloraseptic [place] 180 Ml Bot) 0 ml PO PRN PRN PRN Reason: Sore Throat Saccharomyces Boulardii (Florastor) 250 mg PO DAILY [facility] Last Admin: 12/12/17 08:26 Dose: 250 mg Senna (Senokot) 2 tab PO HSPRN PRN PRN Reason: Constipation Last Admin: 12/09/17 20:51 Dose: 2 tab Sodium Chloride ([place] Nasal [place] 0.65%) 0 ml EA NARE QIDPRN PRN PRN Reason: Nasal Congestion Sodium Chloride (Flush - Normal Saline) 10 ml IVF Q12HR [facility] Last Admin: 12/12/17 08:25 Dose: Not Given Sodium Chloride (Flush - Normal Saline) 10 ml IVF PRN PRN PRN Reason: Saline Flush Spironolactone (Aldactone) 25 mg PO QAM[facility] Last Admin: 12/12/17 08:26 Dose: 25 mg Zolpidem Tartrate (Ambien) 5 mg PO HSPRN PRN PRN Reason: Insomnia
[2017-12-12 11:56] VITALS: BP 118/62; TEMP 97.6
[2017-12-12] MEDS: HYDROcodone/Acetaminophen 5/325 mg Tablet PO PRN (11:57)
--- NOTE | 2017-12-12 13:06 | ADD-DIS ---
ADDENDUM Please see my discharge summary dictated on 12/10/2017. This patient was planned for discharge. On that day with the dose prescribed medication, but Cardiology recommended to start amiodarone loading dose orally and subsequent taper for paroxysmal nonsustained ventricular tachycardia. The patient wa s also complaining of some vague chest discomfort and that is why Cardiology recommended to obtain me dical record of recent stress test done at [facility]. When we received [facility] medical record for stress test, we found that he had exercise treadmill stress test, but no nuclear portion of stress test done. At this point, the patient does not have any further chest pain and Cardiology does not recommend any further investigation. This patient is also not intereste d in going for further cardiac evaluation including stress test, cardiac catheterization or pacemaker , also defibrillator placement or LifeVest placement. Rather, he wanted to go home with his family. The patient has chronic right shoulder pain and that is why we prescribed Tylenol #3 upon discharge and we advised him to follow up with orthopedic clinic as an outpatient basis. The patient is seen and examined at bedside today. Please see my progress note from today for furthe r details. For discharge medications, please see my discharge summary from previous as well. Overall, patient is medically stable for discharge today.
--- NOTE | 2017-12-14 14:23 | EKG ---
Test Reason : CHEST PAIN Blood Pressure : / mmHG Vent. Rate : 081 BPM Atrial Rate : 081 BPM P-R Int : 166 ms QRS Dur : 108 ms QT Int : 426 ms P-R-T Axes : 062 045 089 degrees QTc Int : 494 ms Normal sinus rhythm Left atrial enlargement Low voltage QRS Possible Inferior infarct , age undetermined Cannot rule out Anterior infarct , age undetermined Abnormal ECG Confirmed by LEYDA Rasheed, ELAN ([id number]), editor news TONY OLIVAREZ ([id number]) on 12/14/2017 2:21:48 PM Referred By: LEYDA Confirmed By:ELAN CRABTREE M.D.
== END 2017-12-12 13:52 | disposition home or self-care (01) | DRG 871 ==
LOC: ERS 09:49 → 2NO 11:32 → EEVIPCON 11:32
PROVIDERS: ADMIT Internal Medicine; ATTEND Internal Medicine
DX: A41.9 Sepsis, unspecified organism (principal); J96.01 Acute respiratory failure with hypoxia; I47.2 Ventricular tachycardia; I50.23 Acute on chronic systolic (congestive) heart failure; E87.2 Acidosis; E44.1 Mild protein-calorie malnutrition; J15.9 Unspecified bacterial pneumonia; I24.8 Other forms of acute ischemic heart disease; R65.20 Severe sepsis without septic shock; Z88.0 Allergy status to penicillin; I25.2 Old myocardial infarction; I25.10 Atherosclerotic heart disease of native coronary artery without angina pectoris; Z95.5 Presence of coronary angioplasty implant and graft; Z68.20 Body mass index [BMI] 20.0-20.9, adult; G89.29 Other chronic pain; M25.511 Pain in right shoulder; E87.6 Hypokalemia; E78.5 Hyperlipidemia, unspecified; D64.89 Other specified anemias; I25.5 Ischemic cardiomyopathy
CPT/HCPCS: 36415; 71045; 71046; 80048; 80053; 80061; 80202; 81001; 82553; 83605; 83735; 83880; 84443; 84484; 85025; 87804; 93005; 93306; 94640; 96361; 96374; A4216; G8978-GP-CJ; G8979-GP-CJ; G8980-GP-CJ; G8987-GO-CI; G8988-GO-CI; G8989-GO-CI; J0692; J1650; J1956; J2405; J3370; J7620

== ENCOUNTER 2018-01-06 08:52 | Observation (INO) | payer MEDICARE, MEDICAID ==
[2018-01-06] MEDS ORDERED: Furosemide 40 MG/4 ML VIAL ONE (09:06)
[2018-01-06] MEDS ORDERED: Nitroglycerin 0.4 MG TAB (25 Tab Bottle) ONE (09:06)
--- NOTE | 2018-01-06 09:30 | RAD ---
SINGLE VIEW CHEST: Date: 01/06/18 COMPARISON: 12/06/17. HISTORY: Chest pain and shortness of breath. FINDINGS: Single view of the chest shows normal sized cardiomediastinal silhouette. There is a small right pleu ral effusion. An adjacent infiltrate in the right lower lobe may be present. Increased interstitial l ashli markings are present. IMPRESSION: Small right pleural effusion with adjacent atelectasis versus infiltrate. POS: [facility]
[2018-01-06 09:40] LABS: Troponin I 0.013 ng/mL (< 0.028)
--- NOTE | 2018-01-06 10:46 | HP ---
PRIMARY CARE PHYSICIAN: City call admission. REASON FOR ADMISSION: Chest pain (transfer from [facility] to our hospital for further evalu ation). HISTORY OF PRESENT ILLNESS: A 72-year-old -Japanese male who has cardiomyopathy. He was rece ntly admitted in our hospital on 12/05/2017 and he was discharged home on 12/12/2017. During that ad mission, patient had echocardiography which showed EF 20%-25%. During that admission, patient also h ad nonsustained ventricular tachycardia and that is why amiodarone was started. The patient was also suspected for pneumonia and he was treated with antibiotic therapy. During that admission, patient was complaining of intermittent chest pain and that is why we were trying to do stress test in our spital, but this patient was refusing to go for stress test. We obtained medical record from [facility] where he had only treadmill stress test, but never had any nuclear medicine stress test there. During that admission, Cardiology also offered LifeVest therapy, but he refused at that time. Patient kept complaining of intermittent chest pain and that is why he was given medical ther apy and pain medication and he was discharged home. Again, this patient presented to [facility] with complaint of chest pain which started about 3 days ago on and off on the left side as well as substernal in location. He denies any associ ated nausea, vomiting, and diaphoresis. He denies any shortness of breath. He denies any orthopnea, PND or leg swelling. He denies any palpitation, dizziness or syncope. He denies any fever, chills, cough, and flu-like illness. He denies any UTI symptoms. He denies any constipation, diarrhea, taco marquez, hematochezia. At [facility], patient had routine blood test, which showed negative troponin, but he h ad elevated BNP. He had echocardiogram which was unchanged from previous. This patient evaluated this morning when I tried to get history from him. At that time he was not ho ving any further chest pain, but he wanted to stay in hospital as long as possible and he wanted to e at because he reports that he did not eat more since Saturday. ALLERGIES: PENICILLIN G. CURRENT HOME MEDICATIONS: The patient was discharged home on following medications: Tylenol No. 3 o ne or two tablets q.6 hourly p.r.n., amiodarone 200 mg p.o. daily, aspirin 81 mg p.o. daily, Lipitor 80 mg p.o. at bedtime, Coreg 6.25 mg p.o. b.i.d., Plavix 75 mg p.o. daily, Lasix 20 mg p.o. b.i.d., l isinopril 5 mg p.o. daily, ranitidine 150 mg p.o. daily, Aldactone 25 mg p.o. daily. REVIEW OF SYSTEMS: The following complete review of systems was negative, unless otherwise mentioned in the HPI or below: Constitutional: Weight loss or gain, ability to conduct usual activities. Skin: Rash, itching. Eyes: Double vision, pain. ENT/Mouth: Nose bleeding, neck stiffness, pain, tenderness. Cardiovascular: Palpitations, dyspnea on exertion, orthopnea. Respiratory: Shortness of breath, wheezing, cough, hemoptysis, fever or night sweats. Gastrointestinal: Poor appetite, abdominal pain, heartburn, nausea, vomiting, constipation, or diarr hea. Genitourinary: Urgency, frequency, dysuria, nocturia. Musculoskeletal: Pain, swelling. Neurologic/Psychiatric: Anxiety, depression. Allergy/Immunologic: Skin rash, bleeding tendency. Please see my HPI for pertinent positive and negative. All other review of systems reviewed and nega tive except as mentioned in the HPI. PAST MEDICAL HISTORY: Ischemic cardiomyopathy, coronary artery disease with history of MA, hypertens ion, dyslipidemia, chronic systolic heart failure. PAST SURGICAL HISTORY: Cardiac catheterization with stent placement per patient. PAST PSYCHIATRIC HISTORY: Reviewed and negative. SOCIAL HISTORY: Patient lives with his brother. No history of tobacco, alcohol or illicit drug abus e. FAMILY HISTORY: No strong family history of premature coronary artery disease, stroke or cancer. EMERGENCY ROOM COURSE: The patient refused Lasix. At [facility], he was given aspirin and nitroglycerin sublingual. In our emergency room, patient is given Lasix 40 mg and nitroglycerin sublingual 3 times. PHYSICAL EXAMINATION: VITAL SIGNS: Currently, blood pressure 103/68, pulse 65, respiratory rate 20, temperature 98.7, satu ration 93% on room air and weight 68 kilograms. GENERAL: The patient is currently alert, awake, no obvious acute distress. HEAD: Normocephalic, atraumatic. EYES: Pupils round, reactive to light. Extraocular muscle intact. ENT: Oropharynx within normal limits. Moist mucous membranes. No oral lesion, no pharyngeal erythe ma, no exudate. NECK: Supple, no JVD, no thyromegaly, no carotid bruit, no jugular venous distention. LUNGS: Clear to auscultation without any rhonchi or rales. CARDIAC: S1, S2 appears regular. No murmur, no gallop, no rub. ABDOMEN: Soft, bowel sounds present, nontender, nondistended. No organomegaly, no mass, no suprapub ic tenderness. BACK: Examination unremarkable, no CVA tenderness. EXTREMITIES: Upper extremity; passive movement of all joints are normal. Lower extremities; no nicolle a. Good peripheral pulsation. SKIN: No skin rash. HEMATOLOGICAL SYSTEM: No lymphadenopathy. PSYCHIATRIC: Normal affect. IMAGING DATA AND SIGNIFICANT LABORATORY DATA: 1. EKG showing left atrial enlargement, low voltage QRS complex, normal sinus rhythm without any robbie nge from previous. 2. Chest x-ray showing small right pleural effusion with atelectasis. 3. CBC: WBC 8.29, hemoglobin 12.0, platelet 196. 4. BMP: Sodium 135, potassium 3.7, chloride 102, carbon dioxide 23, glucose 101, BUN 13, creatinine 1.0. 5. LFT: Bilirubin 1.4, alkaline phosphatase 46, AST 15, ALT 10, protein 7.3, albumin 3.3. CK 110, CK-MB 1.8, troponin 0.018, and BNP 2335. ASSESSMENT AND PLAN/IMPRESSION: 1. Chest pain. Patient's chest pain description is atypical. Patient does have a history of garcia ry artery disease and myocardial infarction. Currently, EKG is not showing any new ischemic changes and his troponin is negative x2. Patient will be observed on telemetry floor. We will do serial car diac enzymes x3. We will also try to do nuclear medicine pharmacological stress test for ischemic wo rkup. We will check lipid profile tomorrow morning. We will monitor on telemetry floor. 2. Ischemic cardiomyopathy with chronic systolic heart failure. This patient has elevated BNP, but patient appears clinically euvolemic. He does have mild right pleural effusion. He is on room air a nd he does not have any orthopnea on examination. At this point, we will continue patient's home med ication with lisinopril 5 mg p.o. daily, Aldactone 25 mg p.o. daily, and Coreg 6.25 mg p.o. b.i.d. al renetta with Lasix 20 mg p.o. b.i.d. If blood pressure is less than 110, then we will hold on all this a ntihypertensive medications. We will monitor on telemetry floor. 3. History of nonsustained ventricular tachycardia. We are doing ischemic workup at this time as we ll as currently patient is on amiodarone 200 mg p.o. daily. We will consult Cardiology to arrange Li feVest therapy. This patient agreed to have LifeVest this time which he refused on previous admissio n. 4. Coronary artery disease. We will continue aspirin, Plavix, statin therapy as per home dosage. 5. Gastroesophageal reflux disease. We will continue Pepcid 20 mg p.o. b.i.d. 6. Code status: The patient is FULL CODE. The patient does not have any obvious surrogate decision maker. Disposition plan based on stress test results and Cardiology recommendation. Patient is medically st able at this point. We will consider discharging him home tomorrow.
[2018-01-06] MEDS ORDERED: Diabetic Tussin 200 MG/10 ML UDCUP PO PRN (11:33)
[2018-01-06] MEDS ORDERED: Ondansetron ODT 4 MG TAB PO PRN (11:33)
[2018-01-06] MEDS ORDERED: Zolpidem Tartrate 5 MG TAB PO PRN (11:33)
[2018-01-06] MEDS ORDERED: Loratadine 10 MG TAB PO PRN (11:33)
[2018-01-06] MEDS ORDERED: Mag-Al 1200 mg/1200 mg/30 ML UDCUP PO PRN (11:33)
[2018-01-06] MEDS ORDERED: Sodium Chloride 0.65% Nasal 44 ML BOT EA NARE PRN (11:33)
[2018-01-06] MEDS ORDERED: Ondansetron HCl/PF 4 MG/2 ML Vial IVP PRN (11:33)
[2018-01-06] MEDS ORDERED: Senokot 8.6 MG TAB PO PRN (11:33)
[2018-01-06] MEDS ORDERED: Acetaminophen 325 MG TAB PO PRN (11:33)
[2018-01-06] MEDS ORDERED: Artificial Tears 18 DROP/0.9 ML EA EYE PRN (11:33)
[2018-01-06] MEDS ORDERED: Nitroglycerin 0.4 MG TAB (25 Tab Bottle) PO PRN (11:33)
[2018-01-06] MEDS ORDERED: Chloraseptic Spray 180 ml Bottle PO PRN (11:33)
[2018-01-06] MEDS ORDERED: Milk Of Magnesia 30 ML UDCUP PO PRN (11:33)
[2018-01-06] MEDS ORDERED: hydrALAZINE 20 MG/ML VIAL SLOW IVP PRN (11:33)
[2018-01-06] MEDS ORDERED: Nitroglycerin 0.4 MG TAB (25 Tab Bottle) SL PRN (11:33)
[2018-01-06] MEDS ORDERED: Eucerin (Mineral Oil/Petrolatum,White) 30 gm Jar TOP PRN (11:33)
[2018-01-06 11:49] VITALS: BMI 21.4
[2018-01-06 13:40] LABS: Troponin I 0.019 ng/mL (< 0.028)
[2018-01-06] MEDS ORDERED: Furosemide 20 MG TAB PO SCH (14:00)
[2018-01-06] MEDS: HYDROcodone/Acetaminophen 5/325 mg Tablet PO PRN ×2 (16:34→22:50)
[2018-01-06 17:05] LABS: Troponin I 0.014 ng/mL (< 0.028)
[2018-01-06] MEDS: Atorvastatin Calcium 40 MG TAB PO SCH (20:20)
[2018-01-06] MEDS: Famotidine 20 MG TAB PO SCH (20:20)
[2018-01-06] MEDS: Carvedilol 6.25 MG TAB PO SCH (20:25)
--- NOTE | 2018-01-07 02:52 | CON ---
DATE OF SERVICE: 01/06/2018 HISTORY: Mark Hirsch is a 72-year-old black male who was just hospitalized here one month ago. In 2014, apparently a myocardial infarction, he states he had 3 stents placed at [facility] in [place]. He apparently has since received most of his care at the NH. He was also told that he had a weak heart and an ICD was offered, but he declined. When he was hospitalized here one month ago, he was on no cardiac medications. He was placed on carv edilol and Lasix, and symptoms improved. He now states that he has been having chest pain for 3 days . Whenever he would have this, each episode would last 2 to 3 hours and be pleuritic in nature. He also would have palpable chest tenderness. He states he has been changing some overhead lights, but that is the only somewhat unusual physical activity that he has performed. Despite episodes of hours of chest pain, cardiac enzymes are unremarkable. He apparently had a treadmill test in [employer] and this was just an exercise stress test, but did not have any nuclear scan performed with it. He was h ere last visit, patient apparently did not want any stress test and cardiac catheterization, defibril lator placement or LifeVest. He did have an episode of nonsustained ventricular tachycardia and was started on amiodarone. PAST MEDICAL HISTORY: Ischemic cardiomyopathy, history of myocardial infarction, hypertension, hyper cholesterolemia, and systolic heart failure. SOCIAL HISTORY: Does not smoke or drink. MEDICATIONS: Amiodarone 200 mg b.i.d., aspirin 81 daily, atorvastatin 80 daily, carvedilol 6.25 b.i. d., Plavix 75 daily, furosemide 20 b.i.d., lisinopril 20 daily, nitroglycerin p.r.n., ranitidine 150 daily, and spironolactone 25 q.a.m. ALLERGIES: PENICILLIN. FAMILY HISTORY: Unremarkable. REVIEW OF SYSTEMS: Twelve point review of systems are unremarkable. PHYSICAL EXAMINATION: VITAL SIGNS: 107/59, pulse of 60. HEENT: PERRL. NECK: Supple. CHEST: Clear. CARDIAC: S1, S2 normal, without any S3, S4 or murmurs. ABDOMEN: Normal bowel sounds, without tenderness, organomegaly. EXTREMITIES: Revealed no clubbing, cyanosis, or edema. NEUROLOGIC: Grossly intact. MUSCULOSKELETAL: Revealed palpable chest wall tenderness that reproduces pain. LABORATORY DATA: EKG revealed normal sinus rhythm with old anterior septal myocardial infarction. C ardiac enzymes were negative. Sodium 136, potassium 4.2, chloride 100, carbon dioxide 30, BUN 17, cr eatinine 0.99. Hemoglobin 11.8, hematocrit 35.9, white count 8500, platelets 200,000. IMPRESSION: 1. Probable chest wall pain with palpable tenderness. He has had negative cardiac enzymes despite h ours of chest discomfort. 2. Ischemic cardiomyopathy. 3. Nonsustained ventricular tachycardia. 4. Hypertension. 5. Hyperlipidemia. PLAN: The patient's current chest pain is atypical for cardiac pain. We again discussed LifeVest; h owever, the patient states he does not wish LifeVest or defibrillator. His care will be assumed by Shayna Berman, who took care of him on previous admission.
[2018-01-07 05:00] LABS: #Eosinphils 0.7 thou/uL (0.0-0.7); #Lymphocytes 1.3 thou/uL (1.20-3.40); #Monocytes 0.6 thou/uL (0.11-0.59); #Neutrophils 3.5 thou/uL (1.40-6.50); %Basophils 0.7 % (0.0-1.0); %Eosinophils 11.6 % (0.0-10.0); %Lymphocytes 21.3 % (21.0-51.0); %Monocytes 10.3 % (0.0-10.0); %Neutrophils 56.1 % (42.0-75.0); Hemoglobin 11.5 g/dL (14.0-18.0); Mean Corpuscular HGB CONC 33.2 g/dL (32.0-36.0); Mean Corpuscular Hemoglobin 28.1 pg (27.0-31.0); Mean Corpuscular Volume 84.5 fl (80.0-94.0); Mean Platelet Volume 7.7 fL (7.4-10.4); Platelet Count 199 thou/uL (130-400); RBC Distribution Width 14.5 % (11.5-14.5); Red Blood Cell (RBC) Count 4.11 mill/uL (4.70-6.10); White Blood Cell (WBC) Count 6.2 thou/uL (4.8-10.8)
[2018-01-07 05:19] LABS: ALT (SGPT) 8 U/L (8-55); AST (SGOT) 11 U/L (5-34); Alkaline Phosphatase 51 U/L (40-150); Anion Gap 7 mmol/L (10-20); BUN (Urea Nitrogen) 16 mg/dL (8.4-25.7); Bilirubin, Total 0.6 mg/dL (0.2-1.2); Calc. Creatinine Clearance 62 mL/min (70-130); Calcium 8.7 mg/dL (7.8-10.44); Carbon Dioxide 30 mmol/L (23-31); Chloride 102 mmol/L (98-107); Cholesterol 110 mg/dl (< 200 Desired); Estimated GFR-MDRD 82; Globulin 3.6 g/dL (2.4-3.5); Glucose 92 mg/dL (83-110); HDL Cholesterol 37 mg/dL (>60 Neg Risk); LDL Cholesterol, Calculated 65 mg/dL; Potassium 3.7 mmol/L (3.5-5.1); Protein, Total 6.6 g/dL (5.8-8.1); Sodium 135 mmol/L (136-145); Triglycerides 42 mg/dL (Less than 150)
[2018-01-07] MEDS: Spironolactone 25 MG TAB PO SCH (07:58)
--- NOTE | 2018-01-07 09:41 | PRG ---
DATE OF SERVICE: 01/07/2018 SUBJECTIVE: Mr. Hirsch was recently admitted for congestive heart failure type symptoms. His main complaint was shortness of breath. He admits to noncompliance. No chest pain or pressure noted. Dillon gibson has a history of CAD, status post stent placement and ischemic cardiomyopathy. He has refused any aggressive means or measures in the past. He states he is feeling better. He has diuresed. PHYSICAL EXAMINATION: VITAL SIGNS: Blood pressure 136/75, pulse 89, temperature 98.9. LUNGS: Clear to auscultation. CARDIAC: Regular rate and rhythm. ABDOMEN: Soft, nontender, nondistended. EXTREMITIES: No edema. PERTINENT LABORATORY DATA: Hemoglobin 11.1, creatinine 1.07. IMPRESSION: 1. Acute on chronic systolic heart failure. 2. Noncompliance. 3. Ischemic cardiomyopathy. RECOMMENDATIONS: At this point, I would continue current medical therapy. He is currently on Coreg and amiodarone in addition to aspirin and atorvastatin. We will change Lasix from p.o. and IV. Anti cipate Mr. Hirsch being in the hospital for the next day or two. He is not interested in a more ag gressive approach. A stress test was ordered which I have canceled. He is not interested in proceed ing with angiography or ICD.
[2018-01-07] MEDS: Lisinopril 5 MG TAB PO SCH (09:45)
[2018-01-07] MEDS: Amiodarone 200 MG TAB PO SCH (09:46)
[2018-01-07] MEDS: Clopidogrel Bisulfate 75 MG TAB PO SCH (09:46)
--- NOTE | 2018-01-07 10:52 | PDOC.PN ---
- Subjective Encounter Start Date: 01/07/18 Encounter Start Time: 07:30 -: old records requested/rev Patient seen and examined. No new complaints. No overnight events - Objective Resuscitation Status: Resuscitation Status FULL:Full Resuscitation MAR Reviewed: Yes Vital Signs & Weight: Vital Signs (12 hours) Temp Pulse Resp BP BP Pulse Ox 01/07/18 09:45 59 L 01/07/18 08:00 98.8 F 59 L 16 136/75 97 01/07/18 07:59 55 L 125/70 01/07/18 03:55 98.0 F 50 L 16 100/59 L 94 L 01/06/18 23:04 98.5 F 52 L 15 115/64 95 Weight Weight 157 lb 14.4 oz I&O: 01/06/18 01/07/18 01/08/18 06:59 06:59 06:59 Intake Total 1000 Output Total 1550 Balance -550 Result Diagrams: 01/07/18 03:54 01/07/18 03:54 EKG Reviewed by me: Yes (nsr) Phys Exam - Physical Examination Constitutional: NAD HEENT: PERRLA, moist MMs, sclera anicteric Neck: no JVD, supple Respiratory: no wheezing, no rales, no rhonchi Cardiovascular: RRR, no significant murmur, no rub Gastrointestinal: soft, non-tender, no distention, positive bowel sounds Musculoskeletal: no edema, pulses present Neurological: non-focal, normal sensation, moves all 4 limbs Lymphatic: no nodes Psychiatric: normal affect, A&O x 3 Skin: no rash, normal turgor Dx/Plan (1) Chest pain Code(s): R07.9 - CHEST PAIN, UNSPECIFIED Status: Acute (2) Anemia, normocytic normochromic Code(s): D64.9 - ANEMIA, UNSPECIFIED Status: Chronic (3) CAD (coronary artery disease) Code(s): I25.10 - ATHSCL HEART DISEASE OF [place] CORONARY ARTERY W/O ANG PCTRS Status: Chronic (4) Chronic systolic (congestive) heart failure Code(s): I50.22 - CHRONIC SYSTOLIC (CONGESTIVE) HEART FAILURE Status: Chronic (5) Dyslipidemia Code(s): E78.5 - HYPERLIPIDEMIA, UNSPECIFIED Status: Chronic (6) Ischemic cardiomyopathy Code(s): I25.5 - ISCHEMIC CARDIOMYOPATHY Status: Chronic (7) NSVT (nonsustained ventricular tachycardia) Code(s): I47.2 - VENTRICULAR TACHYCARDIA Status: Chronic (8) Protein-calorie malnutrition, mild Code(s): E44.1 - MILD PROTEIN-CALORIE MALNUTRITION Status: Chronic - Plan cont current plan of care * pt is not interested in lifevest as well as cardiac cath today * cardiology cancelled stress test * lasix changed to IV lasix today * medication reviewed as below * symptomatic treatment * will consider discharge when cardiology clear, may be tomorrow. Review of Systems - Review of Systems Constitutional: negative: fever, chills, sweats, weakness, malaise, other ENT: negative: Ear Pain, Ear Discharge, Nose Pain, Nose Discharge, Nose Congestion, Mouth Pain, Mouth Swelling, Throat Pain, Throat Swelling, Other Respiratory: negative: Cough, Dry, Shortness of Breath, Hemoptysis, SOB with Excertion, Pleuritic Pain, Sputum, Wheezing Cardiovascular: negative: chest pain, palpitations, orthopnea, paroxysmal nocturnal dyspnea, edema, light headedness, other Gastrointestinal: negative: Nausea, Vomiting, Abdominal Pain, Diarrhea, Constipation, Melena, Hematochezia, Other Genitourinary: negative: Dysuria, Frequency, Incontinence, Hematuria, Retention , Other Musculoskeletal: negative: Neck Pain, Shoulder Pain, Arm Pain, Back Pain, Hand Pain, Leg Pain, Foot Pain, Other Skin: negative: Rash, Lesions, Luiz, Bruising, Other - Medications/Allergies Allergies/Adverse Reactions: Allergies Allergy/AdvReac Type Severity Reaction Status Date / Time penicillin G Allergy Verified 12/05/17 13:02 Medications: Current Medications Acetaminophen (Tylenol) 650 mg PO Q4H PRN PRN Reason: Headache/Fever or Pain Hydrocodone Bitart/Acetaminophen ([place] 5/325) 1 tab PO Q4H PRN PRN Reason: Moderate Pain (4-6) Last Admin: 01/06/18 22:50 Dose: 1 tab Al Hydroxide/Mg Hydroxide (Maalox) 30 ml PO Q6H PRN PRN Reason: Heartburn or Indigestion Amiodarone HCl (Cordarone) 200 mg PO DAILY JOSUE Last Admin: 01/07/18 09:46 Dose: 200 mg Artificial Tears (Tears Naturale) 0 drop EA EYE PRN PRN PRN Reason: Dry Eyes Aspirin (Aspirin Chewable) 81 mg PO DAILY [facility] Last Admin: 01/07/18 09:46 Dose: 81 mg Atorvastatin Calcium (Lipitor) 80 mg PO HS [facility] Last Admin: 01/06/18 20:20 Dose: 80 mg Carvedilol (Coreg) 6.25 mg PO BID [facility] Last Admin: 01/06/18 20:25 Dose: Not Given Clopidogrel Bisulfate (Plavix) 75 mg PO QAM [facility] Last Admin: 01/07/18 09:46 Dose: 75 mg Famotidine (Pepcid) 20 mg PO BID [facility] Last Admin: 01/06/18 20:20 Dose: 20 mg Furosemide (Lasix) 20 mg SLOW IVP 0600,1400 [facility] Guaifenesin (Robitussin Sf) 200 mg PO Q4H PRN PRN Reason: Cough Hydralazine HCl (Apresoline) 10 mg SLOW IVP Q4H PRN PRN Reason: Systolic BP > 180 Lisinopril (Zestril) 5 mg PO DAILY [facility] Last Admin: 01/07/18 09:45 Dose: 5 mg Loratadine (Claritin) 10 mg PO DAILYPRN PRN PRN Reason: Sinus Symptoms Magnesium Hydroxide (Milk Of Magnesium) 30 ml PO DAILYPRN PRN PRN Reason: Constipation Mineral Oil/White Petrolatum (Eucerin Cream) 0 gm TOP BIDPRN PRN PRN Reason: Dry Skin Nitroglycerin (Nitrostat) 0.4 mg SL Q5MIN PRN PRN Reason: Chest Pain Ondansetron HCl (Zofran Odt) 4 mg PO Q6H PRN PRN Reason: Nausea/Vomiting Ondansetron HCl (Zofran) 4 mg IVP Q6H PRN PRN Reason: Nausea/Vomiting Phenol (Chloraseptic [place] 180 Ml Bot) 0 ml PO PRN PRN PRN Reason: Sore Throat Senna (Senokot) 2 tab PO HSPRN PRN PRN Reason: Constipation Sodium Chloride ([place] Nasal [place] 0.65%) 0 ml EA NARE QIDPRN PRN PRN Reason: Nasal Congestion Spironolactone (Aldactone) 25 mg PO QAM-WM [facility] Last Admin: 01/07/18 07:58 Dose: 25 mg Zolpidem Tartrate (Ambien) 5 mg PO HSPRN PRN PRN Reason: Insomnia
[2018-01-07] MEDS: Carvedilol 6.25 MG TAB PO SCH ×2 (13:05→20:20)
[2018-01-07] MEDS: Famotidine 20 MG TAB PO SCH ×2 (13:06→20:14)
[2018-01-07] MEDS: Furosemide 20 MG/2 ML VIAL SLOW IVP SCH (13:38)
[2018-01-07] MEDS: HYDROcodone/Acetaminophen 5/325 mg Tablet PO PRN ×2 (18:29→22:33)
[2018-01-07] MEDS: Atorvastatin Calcium 40 MG TAB PO SCH (20:15)
[2018-01-08] MEDS: Furosemide 20 MG/2 ML VIAL SLOW IVP SCH ×2 (05:51→14:50)
[2018-01-08] MEDS: HYDROcodone/Acetaminophen 5/325 mg Tablet PO PRN ×2 (05:53→10:26)
[2018-01-08] MEDS: Lisinopril 5 MG TAB PO SCH (08:25)
[2018-01-08] MEDS: Famotidine 20 MG TAB PO SCH (08:25)
[2018-01-08] MEDS: Amiodarone 200 MG TAB PO SCH (08:26)
[2018-01-08] MEDS: Carvedilol 6.25 MG TAB PO SCH (08:27)
[2018-01-08] MEDS: Spironolactone 25 MG TAB PO SCH (08:27)
[2018-01-08] MEDS: Clopidogrel Bisulfate 75 MG TAB PO SCH (08:27)
--- NOTE | 2018-01-08 09:18 | PDOC.PN ---
- Subjective Encounter Start Date: 01/08/18 Encounter Start Time: 08:15 Patient seen and examined. No new complaints. No overnight events - Objective Resuscitation Status: Resuscitation Status FULL:Full Resuscitation MAR Reviewed: Yes Vital Signs & Weight: Vital Signs (12 hours) Temp Pulse Resp BP BP Pulse Ox 01/08/18 08:27 125/70 01/08/18 07:34 98.7 F 60 16 137/90 96 01/08/18 04:11 98.1 F 56 L 18 126/76 96 Weight Weight 152 lb 11.2 oz I&O: 01/07/18 01/08/18 01/09/18 06:59 06:59 06:59 Intake Total 1000 1206 Output Total 1550 6408 250 Balance -323 -3199 -431 Result Diagrams: 01/07/18 03:54 01/07/18 03:54 EKG Reviewed by me: Yes Phys Exam - Physical Examination Constitutional: NAD HEENT: PERRLA, moist MMs, sclera anicteric Neck: no JVD, supple Respiratory: no wheezing, no rales, no rhonchi Cardiovascular: RRR, no significant murmur, no rub Gastrointestinal: soft, non-tender, no distention, positive bowel sounds Musculoskeletal: no edema, pulses present Neurological: non-focal, normal sensation, moves all 4 limbs Lymphatic: no nodes Psychiatric: normal affect, A&O x 3 Skin: no rash, normal turgor Dx/Plan (1) Chest pain Code(s): R07.9 - CHEST PAIN, UNSPECIFIED Status: Acute (2) Anemia, normocytic normochromic Code(s): D64.9 - ANEMIA, UNSPECIFIED Status: Chronic (3) CAD (coronary artery disease) Code(s): I25.10 - ATHSCL HEART DISEASE OF [place] CORONARY ARTERY W/O ANG PCTRS Status: Chronic (4) Chronic systolic (congestive) heart failure Code(s): I50.22 - CHRONIC SYSTOLIC (CONGESTIVE) HEART FAILURE Status: Chronic (5) Dyslipidemia Code(s): E78.5 - HYPERLIPIDEMIA, UNSPECIFIED Status: Chronic (6) Ischemic cardiomyopathy Code(s): I25.5 - ISCHEMIC CARDIOMYOPATHY Status: Chronic (7) NSVT (nonsustained ventricular tachycardia) Code(s): I47.2 - VENTRICULAR TACHYCARDIA Status: Chronic (8) Protein-calorie malnutrition, mild Code(s): E44.1 - MILD PROTEIN-CALORIE MALNUTRITION Status: Chronic - Plan cont current plan of care * medication reviewed as below * symptomatic treatment * stable for discharge * outpt cardiology follow up. Review of Systems - Review of Systems ENT: negative: Ear Pain, Ear Discharge, Nose Pain, Nose Discharge, Nose Congestion, Mouth Pain, Mouth Swelling, Throat Pain, Throat Swelling, Other Respiratory: negative: Cough, Dry, Shortness of Breath, Hemoptysis, SOB with Excertion, Pleuritic Pain, Sputum, Wheezing Cardiovascular: negative: chest pain, palpitations, orthopnea, paroxysmal nocturnal dyspnea, edema, light headedness, other Gastrointestinal: negative: Nausea, Vomiting, Abdominal Pain, Diarrhea, Constipation, Melena, Hematochezia, Other Genitourinary: negative: Dysuria, Frequency, Incontinence, Hematuria, Retention , Other Musculoskeletal: negative: Neck Pain, Shoulder Pain, Arm Pain, Back Pain, Hand Pain, Leg Pain, Foot Pain, Other Skin: negative: Rash, Lesions, Luiz, Bruising, Other - Medications/Allergies Allergies/Adverse Reactions: Allergies Allergy/AdvReac Type Severity Reaction Status Date / Time penicillin G Allergy Verified 12/05/17 13:02 Medications: Current Medications Acetaminophen (Tylenol) 650 mg PO Q4H PRN PRN Reason: Headache/Fever or Pain Hydrocodone Bitart/Acetaminophen ([place] 5/325) 1 tab PO Q4H PRN PRN Reason: Moderate Pain (4-6) Last Admin: 01/08/18 05:53 Dose: 1 tab Al Hydroxide/Mg Hydroxide (Maalox) 30 ml PO Q6H PRN PRN Reason: Heartburn or Indigestion Amiodarone HCl (Cordarone) 200 mg PO DAILY [facility] Last Admin: 01/08/18 08:26 Dose: 200 mg Artificial Tears (Tears Naturale) 0 drop EA EYE PRN PRN PRN Reason: Dry Eyes Aspirin (Aspirin Chewable) 81 mg PO DAILY [facility] Last Admin: 01/08/18 08:26 Dose: 81 mg Atorvastatin Calcium (Lipitor) 80 mg PO HS [facility] Last Admin: 01/07/18 20:15 Dose: 80 mg Carvedilol (Coreg) 6.25 mg PO BID [facility] Last Admin: 01/08/18 08:27 Dose: Not Given Clopidogrel Bisulfate (Plavix) 75 mg PO QAM [facility] Last Admin: 01/08/18 08:27 Dose: Not Given Famotidine (Pepcid) 20 mg PO BID [facility] Last Admin: 01/08/18 08:25 Dose: 20 mg Furosemide (Lasix) 20 mg SLOW IVP 0600,1400 [facility] Last Admin: 01/08/18 05:51 Dose: Not Given Guaifenesin (Robitussin Sf) 200 mg PO Q4H PRN PRN Reason: Cough Hydralazine HCl (Apresoline) 10 mg SLOW IVP Q4H PRN PRN Reason: Systolic BP > 180 Lisinopril (Zestril) 5 mg PO DAILY [facility] Last Admin: 01/08/18 08:25 Dose: 5 mg Loratadine (Claritin) 10 mg PO DAILYPRN PRN PRN Reason: Sinus Symptoms Magnesium Hydroxide (Milk Of Magnesium) 30 ml PO DAILYPRN PRN PRN Reason: Constipation Mineral Oil/White Petrolatum (Eucerin Cream) 0 gm TOP BIDPRN PRN PRN Reason: Dry Skin Nitroglycerin (Nitrostat) 0.4 mg SL Q5MIN PRN PRN Reason: Chest Pain Ondansetron HCl (Zofran Odt) 4 mg PO Q6H PRN PRN Reason: Nausea/Vomiting Ondansetron HCl (Zofran) 4 mg IVP Q6H PRN PRN Reason: Nausea/Vomiting Phenol (Chloraseptic [place] 180 Ml Bot) 0 ml PO PRN PRN PRN Reason: Sore Throat Senna (Senokot) 2 tab PO HSPRN PRN PRN Reason: Constipation Sodium Chloride ([place] Nasal [place] 0.65%) 0 ml EA NARE QIDPRN PRN PRN Reason: Nasal Congestion Spironolactone (Aldactone) 25 mg PO QAM-WM [facility] Last Admin: 01/08/18 08:27 Dose: Not Given Zolpidem Tartrate (Ambien) 5 mg PO HSPRN PRN PRN Reason: Insomnia
--- NOTE | 2018-01-08 11:49 | DIS ---
DATE OF ADMISSION: 01/06/2018 DATE OF DISCHARGE: 01/08/2018 PRIMARY CARE PHYSICIAN: Dr. Cali Olson in [place]. DISCHARGE DISPOSITION: Home. PRIMARY DISCHARGE DIAGNOSIS: Chest pain, ruled out acute coronary syndrome. SECONDARY DISCHARGE DIAGNOSES: Mild protein calorie malnutrition, paroxysmal nonsustained ventricula r tachycardia, ischemic cardiomyopathy, coronary artery disease, dyslipidemia, chronic systolic heart failure, and normocytic normochromic anemia. PRIMARY PROCEDURE/OPERATION: None. RADIOLOGICAL INVESTIGATION: Chest x-ray was normal. SIGNIFICANT LABORATORY DATA: Hemoglobin 11.5, creatinine 1.07. Cardiac enzymes negative x3. LDL 65 . DISCHARGE MEDICATIONS: Tylenol No. 3 one to two tablets q.6 hourly p.r.n., amiodarone 200 mg p.o. da saba, aspirin 81 mg p.o. daily, Lipitor 80 mg p.o. at bedtime, Coreg 6.25 mg p.o. b.i.d., Plavix 75 mg p.o. daily, Pepcid 20 mg p.o. b.i.d., Lasix 20 mg p.o. b.i.d., lisinopril 5 mg p.o. daily, nitroglyc chris 0.4 mg sublingual p.r.n., and Aldactone 25 mg p.o. daily. CONTRAINDICATIONS: None. CODE STATUS: FULL CODE. INPATIENT CONSULTANTS: Dr. Berman was consulted while in hospital. TEST RESULTS PENDING ON DISCHARGE: None. ALLERGIES: PENICILLIN. DISCHARGE PLAN: Post hospital, the patient will follow up with primary care physician and Cardiology as instructed. HOSPITAL COURSE: A 72-year-old male who has above-mentioned medical problem who went to [facility] with the complaint of chest pain which was going on for 3 days, his chest pain descripti on was noncardiac, non-anginal, though this patient has a history of coronary artery disease and mult iple other risk factors for coronary artery disease. We kept this patient in hospital for observatio n. We did serial cardiac enzyme that were negative. This patient has underlying ischemic cardiomyop athy and nonsustained ventricular tachycardia and that is why we discussed with the patient about imp ortance of LifeVest and subsequent AICD therapy to prevent sudden cardiac , but this patient is not interested in going for all these things again while in hospital. Patient was also not intereste d in going for cardiac catheterization and that is why Cardiology cancelled stress test. While in [facility], he was given IV Lasix for his elevated BNP, though patient is currently euvolemic and he is o n room air. He has multiple other complaints including joint pain and he has personality to stay in hospital as much as possible, but at this point I do not think this patient needs any more hospitaliz ation. He is completely stable with his own medication and he is instructed to follow up with Cardio logy as well as primary care physician upon discharge. The patient is seen and examined at bedside today. Please see my progress note from today for furthe r detail.
[2018-01-08 11:57] VITALS: BP 116/64; TEMP 98.4
== END 2018-01-08 15:44 | disposition home or self-care (01) ==
LOC: ERS 08:52 → 2SW 09:43
PROVIDERS: ADMIT Internal Medicine; ATTEND Internal Medicine
DX: R07.89 Other chest pain (principal); E44.1 Mild protein-calorie malnutrition; I47.9 Paroxysmal tachycardia, unspecified; I25.5 Ischemic cardiomyopathy; I25.10 Atherosclerotic heart disease of native coronary artery without angina pectoris; E78.5 Hyperlipidemia, unspecified; I11.0 Hypertensive heart disease with heart failure; D64.9 Anemia, unspecified; I50.22 Chronic systolic (congestive) heart failure; K21.9 Gastro-esophageal reflux disease without esophagitis; Z88.0 Allergy status to penicillin; Z79.82 Long term (current) use of aspirin; Z79.899 Other long term (current) drug therapy; Z95.5 Presence of coronary angioplasty implant and graft; Z98.890 Other specified postprocedural states
CPT/HCPCS: 71045; 80053; 80061; 84484 ×2; 85025; 93005; 96374; 96376; 99285; G0378; 36415; J1940